=== PATIENT | male | born 1940 | race Caucasian/White ===

== ENCOUNTER → 2017-02-06 | Outpatient (REF) | payer MEDICARE, OTHER ==
[2017-02-06 12:15] LABS: MEAN CORPUSCULAR HEMOGLOBIN 33.1 pg (27.0-33.0); MEAN CORPUSCULAR HGB CONC 34.2 g/dl (32.0-36.5); MEAN CORPUSCULAR VOLUME 96.7 fl (80.0-96.0)
[2017-02-06 12:20] LABS: ALBUMIN 4.2 GM/DL (3.2-5.2); ALBUMIN/GLOBULIN RATIO 1.75 (1.00-1.93); ALKALINE PHOSPHATASE 53 U/L (45-117); ALT/SGPT 24 U/L (12-78); ANION GAP 9 MEQ/L (8-16); AST/SGOT 19 U/L (15-37); BILIRUBIN,TOTAL 0.7 MG/DL (0.2-1.0); BLOOD UREA NITROGEN 24 MG/DL (7-18); CARBON DIOXIDE LEVEL 27 MEQ/L (21-32); CHLORIDE LEVEL 105 MEQ/L (98-107); CHOLESTEROL LEVEL 176 MG/DL (<200); GLOMERULAR FILTRATION RATE > 60.0 (>42); GLUCOSE, FASTING 87 MG/DL (83-110); SODIUM LEVEL 141 MEQ/L (136-145); TOTAL PROTEIN 6.6 GM/DL (6.4-8.2); TRIGLYCERIDES LEVEL 84 MG/DL (<150)
== END ==
LOC: M SFHCPLAZ 08:10
PROVIDERS: ATTEND Internal Medicine
DX: I10 Essential (primary) hypertension (principal); E78.00 Pure hypercholesterolemia, unspecified; Z11.59 Encounter for screening for other viral diseases; Z85.46 Personal history of malignant neoplasm of prostate
CPT/HCPCS: 36415; 80053; 80061; 84153; 85027; G0472

== ENCOUNTER → 2017-12-24 | Outpatient (CLI) | payer MEDICARE, OTHER | LOC: M RAD 16:58 | DX: S83.231A Complex tear of medial meniscus, current injury, right knee, initial encounter (principal); M22.41 Chondromalacia patellae, right knee; M25.461 Effusion, right knee; M25.561 Pain in right knee | CPT/HCPCS: 73721 ==

== ENCOUNTER → 2018-01-06 | Outpatient (REF) | payer MEDICARE, OTHER ==
[2018-01-06 13:18] LABS: HEMATOCRIT 42.4 % (42.0-52.0); HEMOGLOBIN 14.6 g/dl (13.5-17.5); MEAN CORPUSCULAR HEMOGLOBIN 32.6 pg (27.0-33.0); MEAN CORPUSCULAR HGB CONC 34.4 g/dl (32.0-36.5); MEAN CORPUSCULAR VOLUME 94.6 fl (80.0-96.0); PLATELET COUNT, AUTOMATED 192 10^3/uL (150-450); RED BLOOD COUNT 4.48 10^6/uL (4.30-6.10); RED CELL DISTRIBUTION WIDTH 12.6 % (11.5-14.5); WHITE BLOOD COUNT 7.5 10^3/uL (4.0-10.0)
[2018-01-06 13:34] LABS: ALBUMIN 3.9 GM/DL (3.2-5.2); ALKALINE PHOSPHATASE 49 U/L (45-117); ALT/SGPT 21 U/L (12-78); ANION GAP 7 MEQ/L (8-16); AST/SGOT 21 U/L (7-37); BILIRUBIN,TOTAL 0.6 MG/DL (0.2-1.0); BLOOD UREA NITROGEN 24 MG/DL (7-18); CALCIUM LEVEL 8.6 MG/DL (8.8-10.2); CARBON DIOXIDE LEVEL 29 MEQ/L (21-32); CHLORIDE LEVEL 106 MEQ/L (98-107); CHOLESTEROL LEVEL 152 MG/DL (<200); CHOLESTEROL RISK RATIO 2.814 (<5); CREATININE FOR GFR 1.16 MG/DL (0.70-1.30); GLOMERULAR FILTRATION RATE > 60.0 (>42); GLUCOSE, FASTING 94 MG/DL (70-100); HDL CHOLESTEROL 54 MG/DL (>40); NON-HDL-C 98 MG/DL; PROSTATIC SPECIFIC AG MONITOR 0.03 NG/ML (< 4.0); SODIUM LEVEL 142 MEQ/L (136-145); TOTAL PROTEIN 6.5 GM/DL (6.4-8.2); TRIGLYCERIDES LEVEL 80 MG/DL (<150)
== END ==
LOC: M LABDRAW1 08:07
DX: Z85.46 Personal history of malignant neoplasm of prostate (principal); I10 Essential (primary) hypertension; E78.00 Pure hypercholesterolemia, unspecified
CPT/HCPCS: 83735

== ENCOUNTER 2018-12-15 12:46 | Inpatient (IN) | payer MEDICARE, OTHER ==
[~2018-12-15] VITALS: Ht 182.9 cm; Wt 110.8 kg
[2018-12-15] MEDS ORDERED: CARV10CA PO (12:59)
[2018-12-15] MEDS ORDERED: LOSA50TA88 PO (12:59)
[2018-12-15] MEDS ORDERED: CHLO125TA PO (12:59)
[2018-12-15] MEDS ORDERED: ASPI81TA85 PO (12:59)
[2018-12-15] MEDS ORDERED: SPIR-10 PO (12:59)
[2018-12-15 13:24] LABS: BASO % 0.2 % (0.0-1.0); HEMATOCRIT 48.3 % (42.0-52.0); HEMOGLOBIN 16.9 g/dl (13.5-17.5); LYMPH # 0.8 10^3/uL (1.5-4.5); LYMPH % 7.8 % (24.0-44.0); MEAN CORPUSCULAR HEMOGLOBIN 32.9 pg (27.0-33.0); MEAN CORPUSCULAR VOLUME 94.2 fl (80.0-96.0); MONO # 0.3 10^3/uL (0.0-0.8); MONO % 3.2 % (0.0-5.0); NEUTROPHILS # 8.9 10^3/uL (1.8-7.7); NEUTROPHILS % 88.4 % (36.0-66.0); PLATELET COUNT, AUTOMATED 197 10^3/uL (150-450); RED BLOOD COUNT 5.13 10^6/uL (4.30-6.10); WHITE BLOOD COUNT 10.1 10^3/uL (4.0-10.0)
[2018-12-15] MEDS ORDERED: ONDANSETRON 4MG/2ML VIAL (J2405) IV ONE (13:30)
[2018-12-15] MEDS ORDERED: NS 1,000 ML IV ONE (13:30)
[2018-12-15] MEDS: MORPHINE 4 MG/ML 1ML VIAL/SYRINGE (J2270) IV PRN ×2 (13:36→20:11)
[2018-12-15 13:48] LABS: ALBUMIN 4.3 GM/DL (3.2-5.2); ALT/SGPT 36 U/L (12-78); BILIRUBIN,DIRECT 0.2 MG/DL (0.0-0.2); BILIRUBIN,TOTAL 0.8 MG/DL (0.2-1.0); BLOOD UREA NITROGEN 20 MG/DL (7-18); CALCIUM LEVEL 9.9 MG/DL (8.8-10.2); CARBON DIOXIDE LEVEL 26 MEQ/L (21-32); CHLORIDE LEVEL 103 MEQ/L (98-107); CK-MB VALUE MASS 2.1 NG/ML (<3.6); CPK CREATINE PHOSPHOKINASE 101 U/L (39-308); CREATININE FOR GFR 1.21 MG/DL (0.70-1.30); GLOMERULAR FILTRATION RATE > 60.0 (>42); GLUCOSE, FASTING 150 MG/DL (70-100); LIPASE 99 U/L (73-393); MB/CK RELATIVE INDEX 2.08 (< OR =4); POTASSIUM SERUM 3.8 MEQ/L (3.5-5.1); SODIUM LEVEL 139 MEQ/L (136-145); TOTAL PROTEIN 7.4 GM/DL (6.4-8.2); TROPONIN I < 0.02 NG/ML (< 0.10)
[2018-12-15] MEDS ORDERED: ISOVUE-370 76% 100ML VIAL (Q9967) As Ordered ONE (14:00)
--- NOTE | 2018-12-15 15:26 | REP ---
CT ANGIOGRAM ABDOMEN AND PELVIS: CT ABDOMEN AND PELVIS WITH CONTRAST: TECHNIQUE: Axial contrast enhanced images from the lung bases to the pubic symphysis using 100 mL Isovue 370 intravenous contrast material with multiplanar reformations. Sagittal and coronal reconstruction images as well as MIP reconstruction images. Visualized lung bases demonstrate mild fibrotic changes and bronchiectasis. The liver, spleen, adrenals and pancreas appear unremarkable. There is a suspicious mass in the upper pole of the right kidney 3.5 cm in diameter, demonstrating heterogeneous enhancement. This may represent carcinoma. There is a cyst in the upper left kidney laterally 2.5 cm in diameter. There is no hydronephrosis bilaterally. There is no abdominal aortic aneurysm. The abdominal aorta is tortuous. There is no dissection. There is no evidence of lymphadenopathy in the abdomen or pelvis. No free air is seen. Mild scattered free fluid is seen throughout the abdomen and pelvis. There are findings consistent with small bowel obstruction with moderately dilated loops of jejunum filled with air and fluid. The transition point appears to be in the left mid to lower abdomen at about the level of the aortic bifurcation. No bowel wall thickening is seen. Scattered diverticula are noted of the left colon. There is no evidence of appendicitis. No pelvic mass is seen. Urinary bladder is mildly distended and grossly unremarkable. There are degenerative changes of the spine. 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 There is a small hiatal hernia. There is a 1.8 cm cyst in the lower pole of the right kidney. IMPRESSION: No evidence of abdominal aortic aneurysm. Small bowel obstruction which appears to be fairly high grade with the transition point in the left mid abdomen at about the level of the aortic bifurcation. No free air. Mild scattered free fluid in the abdomen and pelvis. Mass upper pole right kidney suspicious for renal cell carcinoma measuring 3.5 cm in diameter. Left renal cyst measures 2.5 cm in diameter. Electronically Signed by Víctor Rao MD 12/15/2018 04:37 P
[2018-12-15] MEDS ORDERED: LEXA1TAB2 PO (15:35)
[2018-12-15] MEDS ORDERED: NAPR-837 PO (15:35)
[2018-12-15] MEDS ORDERED: KETOROLAC 30 MG/ML VIAL (J1885) IV PRN (18:30)
--- NOTE | 2018-12-15 19:28 | HPEPDOC ---
[facility] Medical History & Physical Date of Admission Dec 15, 2018 Date of Service: Dec 15, 2018 Primary Care Physician: Jr Chaudhry Collins History and Physical CHIEF COMPLAINT: abdominal pain HISTORY OF PRESENT ILLNESS: Pt is 78 y/o M with PMHx of prostate ca s/p resection years ago, HTN, hyperlipidemia and kidney lesion not specified, presented to ED due to one day history of severe 8/10 abdominal pain associated with nausea, no vomiting. Pt characterizes pain as constant dull pain with no radiation. Pt reports pain in his chest wall at the same time of abdomen pain. Last BM in the morning normal for pt. No diarrhea no constipation no hemorrhage. Denies any difficulty breathing or lightheadedness. Denies any urinary problem. Pt denies any fever, malaise, denies weight loss. ED course: Pt found to have VS SBP 150-160/90s, HR 90s, mild leukocytosis, NL LFT, NL lipase, negative Trop, no electrolyte imbalance. CT angio of abdomen/pelvis consistent with high grade SBO. Surgery is consulted, recommendations pending. PAST MEDICAL HISTORY: as above PAST SURGICAL HISTORY: 1. Prostate resection 2013 2. Colonoscopy 2007 3. Removal of adenomatous polyp in [place] 2017 SOCIAL HISTORY: Pt lives in [place] spends summer time in this area, lives with , at bedside present, denies smoking,ETOH occasionally FAMILY HISTORY: endometrial ca in mother, HTN in father ALLERGIES: Please see below. REVIEW OF SYSTEMS: 10 point ROS completed negative except as in HPI HOME MEDICATIONS: Please see below. PHYSICAL EXAMINATION: GENERAL APPEARANCE: Pt is pleasant elderly in no acute distress, comfortable states morphine has helped relieving his pain, AAOx3 HEENT: RADHA EOMI no icterus no JVD neck supple CARDIOVASCULAR: S1 S2 no murmur LUNGS: clear bilat ABDOMEN: soft not distended no rebound no guarding tenderness in lower quadrants in deep palpation MUSCULOSKELETAL: no joint deformity EXTREMITIES: no edema no tenderness no cyanosis NEUROLOGICAL: motor sensory grossly intact PSYCHIATRIC: mood affect appropriate LABORATORY DATA: See below. IMAGING: IMPRESSION: No evidence of abdominal aortic aneurysm. Small bowel obstruction which appears to be fairly high grade with the transition point in the left mid abdomen at about the level of the aortic bifurcation. No free air. Mild scattered free fluid in the abdomen and pelvis. Mass upper pole right kidney suspicious for renal cell carcinoma measuring 3.5 cm in diameter. Left renal cyst measures 2.5 cm in diameter. MICROBIOLOGY: Please see below. A/P 1-High grade SBO Conservative medical management IVF NS 150 ml/hr Monitor electrolytes Broad spectrum antibiotics Surgery is consulted Ketorolac prn Antiemetics Protonix DVT prophylaxis Vital Signs Vital Signs Date Time Temp Pulse Resp B/P (MAP) Pulse Ox O2 Delivery O2 Flow Rate FiO2 12/15/18 18:01 98 18 93 Room Air 12/15/18 17:30 159/97 (117) 12/15/18 12:46 97.9 Laboratory Data Labs 24H Laboratory Tests 2 12/15/18 13:04: Immature Granulocyte % (Auto) 0.4, White Blood Count 10.1H, Red Blood Count 5.13, Hemoglobin 16.9, Hematocrit 48.3, Mean Corpuscular Volume 94.2, Mean Corpuscular Hemoglobin 32.9, Mean Corpuscular Hemoglobin Concent 35.0, Red Cell Distribution Width 12.7, Platelet Count 197, Neutrophils (%) (Auto) 88.4H, Lymphocytes (%) (Auto) 7.8L, Monocytes (%) (Auto) 3.2, Eosinophils (%) (Auto) 0.0, Basophils (%) (Auto) 0.2, Neutrophils # (Auto) 8.9H, Lymphocytes # (Auto) 0.8L, Monocytes # (Auto) 0.3, Eosinophils # (Auto) 0.0, Basophils # (Auto) 0.0, Nucleated Red Blood Cells % (auto) 0.0, Anion Gap 10, Glomerular Filtration Rate > 60.0, Calcium Level 9.9, Aspartate Amino Transf (AST/SGOT) 26, Alanine Aminotransferase (ALT/SGPT) 36, Alkaline Phosphatase 60, Total Bilirubin 0.8, Direct Bilirubin 0.2, Total Creatine Kinase 101, Creatine Kinase MB 2.1, Creatine Kinase MB Relative Index 2.08, Troponin I < 0.02, Total Protein 7.4, Albumin 4.3, Albumin/Globulin Ratio 1.39, Lipase 99 CBC/BMP Laboratory Tests 12/15/18 13:04 Red Blood Count 5.13, Mean Corpuscular Volume 94.2, Mean Corpuscular Hemoglobin 32.9, Mean Corpuscular Hemoglobin Concent 35.0, Red Cell Distribution Width 12.7, Neutrophils (%) (Auto) 88.4 H, Lymphocytes (%) (Auto) 7.8 L, Monocytes (%) (Auto) 3.2, Eosinophils (%) (Auto) 0.0, Basophils (%) (Auto) 0.2, Neutrophils # (Auto) 8.9 H, Lymphocytes # (Auto) 0.8 L, Monocytes # (Auto) 0.3, Eosinophils # (Auto) 0.0, Basophils # (Auto) 0.0 Home Medications Scheduled Carvedilol Phosphate (Carvedilol ER) 10 Mg Cpmp.24hr, 10 MG PO DAILY Chlorthalidone (Chlorthalidone) 25 Mg Tablet, 25 MG PO DAILY Escitalopram Oxalate (Lexapro) 20 Mg Tablet, 20 MG PO DAILY Losartan Potassium (Losartan Potassium) 50 Mg Tablet, 50 MG PO DAILY Spironolactone (Spironolactone) 25 Mg Tablet, 12.5 MG PO DAILY Scheduled PRN Naproxen (Naprosyn) 500 Mg Tablet, 500 MG PO BID PRN for BACK PAIN Allergies Coded Allergies: No Known Allergies (Unverified , 12/15/18) A-FIB/CHADSVASC A-FIB History Current/History of A-Fib/PAF?: No HALIMA SKAGGS MD Dec 15, 2018 19:28
[2018-12-15] MEDS: NS 1,000 ML IV SCH (20:12)
[2018-12-15] MEDS: PANTOPRAZOLE 40MG INJ (PROTONIX) (C9113) IV SCH (20:13)
[2018-12-15] MEDS: CIPROFLOXACIN 400 MG in APPROPRIATE DILUENT 1 EA IV SCH (21:00)
[2018-12-15 21:44] VITALS: BP 137/89
[2018-12-15] MEDS: ONDANSETRON 4MG/2ML VIAL (J2405) IV PRN (22:05)
[2018-12-15] MEDS: HEPARIN SOD (PORCINE) 5000 UNITS/ML VIAL SC SCH (22:13)
[2018-12-15] MEDS: metroNIDAZOLE 500 MG in APPROPRIATE DILUENT 1 EA IV SCH (23:21)
[2018-12-16] MEDS: ONDANSETRON 4MG/2ML VIAL (J2405) IV PRN (03:28)
[2018-12-16 04:00] VITALS: BP_SYST 103; BP_SYST 119; BP_DIAS 59; BP_DIAS 65
[2018-12-16] MEDS: NS 1,000 ML IV SCH ×3 (04:20→18:30)
[2018-12-16 05:32] LABS: HEMATOCRIT 42.8 % (42.0-52.0); MEAN CORPUSCULAR HEMOGLOBIN 33.8 pg (27.0-33.0); MEAN CORPUSCULAR HGB CONC 34.6 g/dl (32.0-36.5); MEAN CORPUSCULAR VOLUME 97.7 fl (80.0-96.0); PLATELET COUNT, AUTOMATED 172 10^3/uL (150-450); RED BLOOD COUNT 4.38 10^6/uL (4.30-6.10)
[2018-12-16] MEDS: HEPARIN SOD (PORCINE) 5000 UNITS/ML VIAL SC SCH ×3 (05:54→20:55)
[2018-12-16] MEDS: metroNIDAZOLE 500 MG in APPROPRIATE DILUENT 1 EA IV SCH ×3 (05:54→22:06)
[2018-12-16 06:07] LABS: HEMOGLOBIN 14.8 g/dl (13.5-17.5)
[2018-12-16 06:44] LABS: ALBUMIN 3.1 GM/DL (3.2-5.2); ALT/SGPT 25 U/L (12-78); BILIRUBIN,TOTAL 0.5 MG/DL (0.2-1.0); BLOOD UREA NITROGEN 19 MG/DL (7-18); CALCIUM LEVEL 8.4 MG/DL (8.8-10.2); CARBON DIOXIDE LEVEL 30 MEQ/L (21-32); CHLORIDE LEVEL 105 MEQ/L (98-107); CREATININE FOR GFR 1.13 MG/DL (0.70-1.30); GLOMERULAR FILTRATION RATE > 60.0 (>42); GLUCOSE, FASTING 112 MG/DL (70-100); POTASSIUM SERUM 3.9 MEQ/L (3.5-5.1); SODIUM LEVEL 143 MEQ/L (136-145); TOTAL PROTEIN 5.8 GM/DL (6.4-8.2)
[2018-12-16 08:00] VITALS: BP 114/67
[2018-12-16] MEDS: CIPROFLOXACIN 400 MG in APPROPRIATE DILUENT 1 EA IV SCH ×2 (08:14→20:56)
[2018-12-16] MEDS: PANTOPRAZOLE 40MG INJ (PROTONIX) (C9113) IV SCH (08:14)
--- NOTE | 2018-12-16 10:30 | ECGEPIP ---
[facility] - ED Test Date: 2018-12-15 Pat Name: AUGIE GRAHAM Department: Room: - Gender: Male [employer] Crew: JOSEPHINE : 1940 Requested By: Virgilio Merino Order Number: [id number] Reading MD: Tali Ron Measurements Intervals [place] Rate: 89 P: 18 HI: 190 QRS: QRSD: 87 T: 24 QT: 356 QTc: 433 Interpretive Statements SINUS RHYTHM WITH OCCASIONAL SUPRAVENTRICULAR PREMATURE COMPLEXES MARKED LEFT AXIS DEVIATION PATTERN CONSISTENT WITH PULMONARY DISEASE No prior INFERIOR MYOCARDIAL INFARCTION, PROBABLY OLD baseline artifact may affect interpretation Electronically Signed on 12-16-2018 10:30:51 EDT by Tali Ron
--- NOTE | 2018-12-16 10:38 | IPNPDOC ---
Text Note Date of Service The patient was seen on 12/16/18. NOTE No acute events overnight. Denies any abd pains at all, and no NG was placed. No complaints at all this am. VSSAF NAD abd - soft, nt, nd labs - below A) 78y/o male with SBO on CT and abd pain that has all resolved. P) clq diet ambulate will advance diet in am if tolerating, and d/c home. will follow. Jose A Blake DO VS,Fishbone, I+O VS, Fishbone, I+O Laboratory Tests 12/15/18 13:04 Red Blood Count 5.13, Mean Corpuscular Volume 94.2, Mean Corpuscular Hemoglobin 32.9, Mean Corpuscular Hemoglobin Concent 35.0, Red Cell Distribution Width 12.7, Neutrophils (%) (Auto) 88.4 H, Lymphocytes (%) (Auto) 7.8 L, Monocytes (%) (Auto) 3.2, Eosinophils (%) (Auto) 0.0, Basophils (%) (Auto) 0.2, Neutrophils # (Auto) 8.9 H, Lymphocytes # (Auto) 0.8 L, Monocytes # (Auto) 0.3, Eosinophils # (Auto) 0.0, Basophils # (Auto) 0.0 12/16/18 05:19 Red Blood Count 4.38, Mean Corpuscular Volume 97.7 H, Mean Corpuscular Hemoglobin 33.8 H, Mean Corpuscular Hemoglobin Concent 34.6, Red Cell Distribution Width 13.0, Calcium Level 8.4 #L, Aspartate Amino Transf (AST/SGOT) 17, Alanine Aminotransferase (ALT/SGPT) 25, Alkaline Phosphatase 50, Total Bilirubin 0.5, Total Protein 5.8 #L, Albumin 3.1 #L Vital Signs Date Time Temp Pulse Resp B/P (MAP) Pulse Ox O2 Delivery O2 Flow Rate FiO2 12/16/18 08:00 97.0 66 18 114/67 (83) 97 12/15/18 21:37 Room Air I&O- Last 24 Hours up to 6 AM 12/16/18 05:59 Intake Total 2200 ml Output Total 850 ml Balance 1350 ml LAURI BLAKE DO Dec 16, 2018 10:37
[2018-12-16 12:00] VITALS: BP 129/80
[2018-12-16] MEDS: CHLORTHALIDONE 25 MG TAB PO SCH (15:24)
[2018-12-16] MEDS: SPIRONOLACTONE 12.5MG PER 1/2 TABLET PO SCH (15:24)
[2018-12-16] MEDS: ESCITALOPRAM OXALATE 10 MG TAB (LEXAPRO) PO SCH (15:25)
[2018-12-16 16:00] VITALS: BP 134/80
[2018-12-16] MEDS: LOSARTAN 50 MG TAB PO SCH (16:12)
--- NOTE | 2018-12-16 18:45 | IPNPDOC ---
Text Note Date of Service The patient was seen on 12/16/18. NOTE Pt was seen and examined at bedside. Denies any abdominal pain. Denies N/V. Had BM. Diet advanced tolerating now. GENERAL APPEARANCE: Pt is pleasant elderly in no acute distress, comfortable states morphine has helped relieving his pain, AAOx3 HEENT: RADHA EOMI no icterus no JVD neck supple CARDIOVASCULAR: S1 S2 no murmur LUNGS: clear bilat ABDOMEN: soft not distended no rebound no guarding tenderness in lower quadrants in deep palpation MUSCULOSKELETAL: no joint deformity EXTREMITIES: no edema no tenderness no cyanosis NEUROLOGICAL: motor sensory grossly intact PSYCHIATRIC: mood affect appropriate Vital Signs Date Time Temp Pulse Resp B/P (MAP) Pulse Ox O2 Delivery O2 Flow Rate FiO2 12/16/18 16:12 160/89 12/16/18 16:00 97.7 83 18 134/80 (98) 97 12/16/18 12:00 98.7 66 18 129/80 (96) 96 12/16/18 08:00 97.0 66 18 114/67 (83) 97 12/16/18 04:00 97.7 69 18 119/59 (79) 92 12/15/18 21:44 98.5 98 18 137/89 (105) 95 12/15/18 21:37 97.4 90 18 129/76 (93) 94 Room Air 12/15/18 21:29 92 18 130/81 (97) 94 Room Air 12/15/18 20:50 18 12/15/18 20:13 100 18 144/98 (113) 94 Room Air 12/15/18 20:11 18 144/98 Intake & Output 12/16/18 06:00 Intake Total 2200 ml Output Total 850 ml Balance 1350 ml Laboratory Tests 12/15/18 20:21: Lactic Acid Level 1.4, Procalcitonin [Pending] 12/16/18 05:19: White Blood Count 11.0H, Red Blood Count 4.38, Hemoglobin 14.8#, Hematocrit 42.8, Mean Corpuscular Volume 97.7H, Mean Corpuscular Hemoglobin 33.8H, Mean Corpuscular Hemoglobin Concent 34.6, Red Cell Distribution Width 13.0, Platelet Count 172, Nucleated Red Blood Cells % (auto) 0.0, Blood Urea Nitrogen 19H, Creatinine 1.13, Sodium Level 143, Potassium Level 3.9, Chloride Level 105, Carbon Dioxide Level 30, Calcium Level 8.4#L, Aspartate Amino Transf (AST/SGOT) 17, Alanine Aminotransferase (ALT/SGPT) 25, Alkaline Phosphatase 50, Total Bilirubin 0.5, Total Protein 5.8#L, Albumin 3.1#L, Anion Gap 8, Glomerular Filtration Rate > 60.0, Fasting Glucose 112H, Albumin/Globulin Ratio 1.15 12/16/18 05:30: Urine Color YELLOW, Urine Appearance HAZY, Urine pH 5.0, Urine Specific [place] 1.041, Urine Protein NEGATIVE, Urine Glucose (UA) NEGATIVE, Urine Ketones NEGATIVE, Urine Blood NEGATIVE, Urine Nitrite NEGATIVE, Urine Bilirubin NEGATIVE, Urine Urobilinogen 0.2, Urine Leukocyte Esterase NEGATIVE, Urine WBC (Auto) 1, Urine RBC (Auto) 2, Urine Hyaline Casts (Auto) 0, Urine Bacteria (Auto) NEGATIVE, Urine Squamous Epithelial Cells 0, Urine Mucus (Auto) LARGE, Urine Sperm (Auto) Current Medications Medications (Trade) Dose Ordered Sig/Elias Route PRN Reason Start Time Stop Time Status Last Admin Dose Admin Ciprofloxacin 400 mg/IV Miscellaneous Supplies 200 ml @ 200 mls/hr Q12H IV 12/15/18 21:00 12/16/18 08:14 200 MLS/HR Heparin Sodium (Porcine) (Heparin) 5,000 units Q8H SC 12/15/18 22:00 12/16/18 14:58 5,000 UNITS Ketorolac Tromethamine (ToRADol) 30 mg Q6HP PRN IV moderate to severe pain 12/15/18 18:30 12/20/18 18:29 12/16/18 03:35 30 MG Losartan Potassium (Cozaar) 50 mg DAILY PO 12/16/18 09:00 12/16/18 16:12 50 MG Metronidazole 500 mg/IV Miscellaneous Supplies 100 ml @ 100 mls/hr Q8H IV 12/15/18 22:00 12/16/18 14:59 100 MLS/HR Ondansetron HCl (ZOFRAN INJection) 4 mg Q4HP PRN IV NAUSEA OR VOMITING 12/15/18 18:30 12/16/18 03:28 4 MG Pantoprazole Sodium (Protonix) 40 mg DAILY IV 12/15/18 18:30 12/16/18 08:14 40 MG Sodium Chloride 1,000 ml @ 150 mls/hr Q6H40M IV 12/15/18 18:30 12/16/18 08:15 150 MLS/HR IMAGING: IMPRESSION: No evidence of abdominal aortic aneurysm. Small bowel obstruction which appears to be fairly high grade with the transition point in the left mid abdomen at about the level of the aortic bifurcation. No free air. Mild scattered free fluid in the abdomen and pelvis. Mass upper pole right kidney suspicious for renal cell carcinoma measuring 3.5 cm in diameter. Left renal cyst measures 2.5 cm in diameter. MICROBIOLOGY: Please see below. A/P 1-High grade SBO Improved Conservative medical management IVF NS 150 ml/hr DC Monitor electrolytes Cipro/Flagyl Cont Surgery recommendations appreciated Ketorolac prn DC Antiemetics Protonix 2-Hx of HTN chlorthalidone, losartan resumed DVT prophylaxis Heparin SC Possible DC in AM. VS,Fishbone, I+O VS, Fishbone, I+O Laboratory Tests 12/16/18 05:19 Red Blood Count 4.38, Mean Corpuscular Volume 97.7 H, Mean Corpuscular Hemoglobin 33.8 H, Mean Corpuscular Hemoglobin Concent 34.6, Red Cell Distribution Width 13.0, Calcium Level 8.4 #L, Aspartate Amino Transf (AST/SGOT) 17, Alanine Aminotransferase (ALT/SGPT) 25, Alkaline Phosphatase 50, Total Bilirubin 0.5, Total Protein 5.8 #L, Albumin 3.1 #L Vital Signs Date Time Temp Pulse Resp B/P (MAP) Pulse Ox O2 Delivery O2 Flow Rate FiO2 12/16/18 16:12 160/89 12/16/18 16:00 97.7 83 18 97 12/15/18 21:37 Room Air I&O- Last 24 Hours up to 6 AM 12/16/18 06:00 Intake Total 2200 ml Output Total 850 ml Balance 1350 ml HALIMA SKAGGS MD Dec 16, 2018 18:45
[2018-12-16 20:00] VITALS: BP 139/85
[2018-12-17] MEDS: ONDANSETRON 4MG/2ML VIAL (J2405) IV PRN ×2 (00:29→10:34)
[2018-12-17 01:45] VITALS: BP 139/83
[2018-12-17] MEDS: NS 1,000 ML IV SCH ×5 (03:50→21:49)
[2018-12-17] MEDS: metroNIDAZOLE 500 MG in APPROPRIATE DILUENT 1 EA IV SCH ×3 (05:55→21:49)
[2018-12-17] MEDS: HEPARIN SOD (PORCINE) 5000 UNITS/ML VIAL SC SCH ×3 (05:55→21:49)
[2018-12-17 06:00] VITALS: BP 150/95
[2018-12-17 06:19] LABS: HEMATOCRIT 44.6 % (42.0-52.0); HEMOGLOBIN 15.5 g/dl (13.5-17.5); MEAN CORPUSCULAR HEMOGLOBIN 33.8 pg (27.0-33.0); MEAN CORPUSCULAR HGB CONC 34.8 g/dl (32.0-36.5); MEAN CORPUSCULAR VOLUME 97.2 fl (80.0-96.0); PLATELET COUNT, AUTOMATED 161 10^3/uL (150-450); RED BLOOD COUNT 4.59 10^6/uL (4.30-6.10); WHITE BLOOD COUNT 8.5 10^3/uL (4.0-10.0)
[2018-12-17] MEDS ORDERED: LORazepam 0.5 MG TAB PO ONE (06:30)
[2018-12-17 06:38] LABS: BLOOD UREA NITROGEN 18 MG/DL (7-18); CALCIUM LEVEL 8.3 MG/DL (8.8-10.2); CARBON DIOXIDE LEVEL 26 MEQ/L (21-32); CHLORIDE LEVEL 106 MEQ/L (98-107); CREATININE FOR GFR 1.02 MG/DL (0.70-1.30); GLOMERULAR FILTRATION RATE > 60.0 (>42); GLUCOSE, FASTING 113 MG/DL (70-100); POTASSIUM SERUM 3.6 MEQ/L (3.5-5.1); SODIUM LEVEL 139 MEQ/L (136-145)
[2018-12-17] MEDS: CIPROFLOXACIN 400 MG in APPROPRIATE DILUENT 1 EA IV SCH ×2 (08:40→21:49)
[2018-12-17] MEDS: SPIRONOLACTONE 12.5MG PER 1/2 TABLET PO SCH (08:40)
[2018-12-17] MEDS: PANTOPRAZOLE 40MG INJ (PROTONIX) (C9113) IV SCH (08:40)
[2018-12-17] MEDS: CHLORTHALIDONE 25 MG TAB PO SCH (08:41)
[2018-12-17] MEDS: ESCITALOPRAM OXALATE 10 MG TAB (LEXAPRO) PO SCH (08:41)
[2018-12-17] MEDS: LOSARTAN 50 MG TAB PO SCH (08:41)
[2018-12-17] MEDS: CARVedilol 12.5 MG TAB PO SCH (08:41)
[2018-12-17] MEDS ORDERED: MAALOX 30 ML SUSP *UDC PO PRN (08:45)
--- NOTE | 2018-12-17 09:34 | REP ---
Clinical: Epigastric and abdominal pain. Technique: Upright view of the chest with supine and upright views of the abdomen and pelvis. Findings: Frontal upright view of the chest demonstrates no obvious acute pleuroparenchymal process and no free air below the diaphragm to suspect pneumoperitoneum. Supine and upright views of the abdomen and pelvis demonstrate continued evidence for high-grade small bowel obstruction. Impression: High-grade small bowel obstruction. Electronically Signed by Papi Mathew MD 12/17/2018 09:26 A
[2018-12-17 10:00] VITALS: BP 128/86
[2018-12-17] MEDS ORDERED: KETOROLAC 30 MG/ML VIAL (J1885) IV PRN (11:00)
--- NOTE | 2018-12-17 12:46 | REP ---
Clinical: Nasogastric tube placement. Technique: Three supine views of the abdomen and pelvis. Findings: Examination is limited by positioning. Evidence for high-grade small bowel obstruction is again appreciated. Upper abdomen is excluded from the film and no nasogastric tube is identified. Skeletal structures demonstrate age-related degenerative changes. Impression: Limited examination demonstrates high-grade small bowel obstruction. Upper abdomen is not visualized and nasogastric tube is not identified. Electronically Signed by Paip Mathew MD 12/17/2018 12:37 P
[2018-12-17 14:00] VITALS: BP 125/84
--- NOTE | 2018-12-17 16:02 | REP ---
Clinical: Nasogastric tube placement. Technique: Single supine view of the abdomen and pelvis. Findings: Nasogastric tube appears to be in satisfactory position in the left upper quadrant. High-grade small bowel obstruction is again identified. Skeletal structures stable. Impression: 1. Nasogastric tube in satisfactory position. 2. High-grade small bowel obstruction. Electronically Signed by Papi Mathew MD 12/17/2018 03:54 P
--- NOTE | 2018-12-17 16:23 | IPNPDOC ---
Text Note Date of Service The patient was seen on 12/17/18. NOTE Pt was seen and examined at bedside today. Pt reports poor appetite with nausea. Pt reports not feeling good. No BM. PHE reveals distended epigastric area without rebound or guarding. Abdomen upright X Ray completed which again consistent with small bowel obstruction. Will place NGT to low wall suction. Close clinical monitoring. PHE GENERAL APPEARANCE: Pt is pleasant elderly in no acute distress, comfortable states morphine has helped relieving his pain, AAOx3 HEENT: RADHA EOMI no icterus no JVD neck supple CARDIOVASCULAR: S1 S2 no murmur LUNGS: clear bilat ABDOMEN: soft distended epigastric area no rebound no guarding tenderness in lower quadrants in deep palpation MUSCULOSKELETAL: no joint deformity EXTREMITIES: no edema no tenderness no cyanosis NEUROLOGICAL: motor sensory grossly intact PSYCHIATRIC: mood affect appropriate Vital Signs Date Time Temp Pulse Resp B/P (MAP) Pulse Ox O2 Delivery O2 Flow Rate FiO2 12/17/18 14:00 97.8 70 18 125/84 (98) 92 12/17/18 10:00 98.0 69 16 128/86 (100) 94 12/17/18 08:41 89 129/83 12/17/18 06:00 97.7 85 20 150/95 (113) 92 12/17/18 01:45 97.1 89 20 139/83 (101) 93 12/16/18 20:00 97.6 84 16 139/85 (103) 96 Intake & Output 12/17/18 06:00 Intake Total 2960 ml Output Total 825 ml Balance 2135 ml Laboratory Tests 12/17/18 05:58: White Blood Count 8.5, Red Blood Count 4.59, Hemoglobin 15.5, Hematocrit 44.6, Mean Corpuscular Volume 97.2H, Mean Corpuscular Hemoglobin 33.8H, Mean Cor puscular Hemoglobin Concent 34.8, Red Cell Distribution Width 12.9, Platelet Count 161, Nucleated Red Blood Cells % (auto) 0.0, Blood Urea Nitrogen 18, Creatinine 1.02, Sodium Level 139, Potassium Level 3.6, Chloride Level 106, Carbon Dioxide Level 26, Calcium Level 8.3L, Anion Gap 7L, Glomerular Filtration Rate > 60.0, Fasting Glucose 113H Current Medications Medications (Trade) Dose Ordered Sig/Elias Route PRN Reason Start Time Stop Time Status Last Admin Dose Admin Carvedilol (COReg) 12.5 mg DAILY PO 12/17/18 09:00 12/17/18 08:41 12.5 MG Chlorthalidone (Hygroton) 25 mg DAILY PO 12/16/18 09:00 12/17/18 08:41 25 MG Ciprofloxacin 400 mg/IV Miscellaneous Supplies 200 ml @ 200 mls/hr Q12H IV 12/15/18 21:00 12/17/18 08:40 200 MLS/HR Escitalopram Oxalate (Lexapro) 20 mg DAILY PO 12/16/18 09:00 12/17/18 08:41 20 MG Heparin Sodium (Porcine) (Heparin) 5,000 units Q8H SC 12/15/18 22:00 12/17/18 14:30 5,000 UNITS Losartan Potassium (Cozaar) 50 mg DAILY PO 12/16/18 09:00 12/17/18 08:41 50 MG Metronidazole 500 mg/IV Miscellaneous Supplies 100 ml @ 100 mls/hr Q8H IV 12/15/18 22:00 12/17/18 14:30 100 MLS/HR Ondansetron HCl (ZOFRAN INJection) 4 mg Q4HP PRN IV NAUSEA OR VOMITING 12/15/18 18:30 12/17/18 10:34 4 MG Pantoprazole Sodium (Protonix) 40 mg DAILY IV 12/15/18 18:30 12/17/18 08:40 40 MG Sodium Chloride 1,000 ml @ 150 mls/hr Q6H40M IV 12/15/18 18:30 12/17/18 14:31 150 MLS/HR Spironolactone (Aldactone) 12.5 mg DAILY PO 12/16/18 09:00 12/17/18 08:40 12.5 MG IMAGING: IMPRESSION: No evidence of abdominal aortic aneurysm. Small bowel obstruction which appears to be fairly high grade with the transition point in the left mid abdomen at about the level of the aortic bifurcation. No free air. Mild scattered free fluid in the abdomen and pelvis. Mass upper pole right kidney suspicious for renal cell carcinoma measuring 3.5 cm in diameter. Left renal cyst measures 2.5 cm in diameter. MICROBIOLOGY: Please see below. A/P 1-High grade SBO Clinically not resolving Insert NGT to low wall suction medical management IVF NS 150 ml/hr Monitor electrolytes Cipro/Flagyl Cont Surgery recommendations appreciated Ketorolac prn Antiemetics Protonix 2-Hx of HTN chlorthalidone, losartan resumed 3-Hx of Anxiety/Depression Cont Citalopram DVT prophylaxis Heparin SC VS,Fishbone, I+O VS, Fishbone, I+O Laboratory Tests 12/17/18 05:58 Red Blood Count 4.59, Mean Corpuscular Volume 97.2 H, Mean Corpuscular Hem oglobin 33.8 H, Mean Corpuscular Hemoglobin Concent 34.8, Red Cell Distribution Width 12.9, Calcium Level 8.3 L Vital Signs Date Time Temp Pulse Resp B/P (MAP) Pulse Ox O2 Delivery O2 Flow Rate FiO2 12/17/18 14:00 97.8 70 18 125/84 (98) 92 12/15/18 21:37 Room Air I&O- Last 24 Hours up to 6 AM 12/17/18 06:00 Intake Total 2960 ml Output Total 825 ml Balance 2135 ml HALIMA SKAGGS MD Dec 17, 2018 16:23
--- NOTE | 2018-12-17 16:58 | IPN ---
DATE: 12/17/2018 HISTORY: Patient was admitted by the hospitalist on the evening of 12/15/2018 for a bowel obstruction. He has a nasogastric tube in place. He was seen in consultation by Dr. Blake. Patient reports that he is still having some abdominal fullness, though he is not having much in the way of pain currently. He is not having any flatus or bowel movement. Vital signs show that he has been afebrile over the past 24 hours. His pulse is ranging from 69-89. Blood pressure is good and his room air oxygen saturations are normal. Intake and output shows an intake yesterday of 2500 with an output of 775. PHYSICAL EXAMINATION: Patient is alert and oriented. He is sitting up in a wheelchair getting ready to head to x-ray. Heart exam shows a regular rate and rhythm. The lungs are clear. The abdomen is mildly full. It is fairly quiet with only some minimal bowel sounds. Laboratory studies show that his white count is 8, with a hemoglobin of 16, hematocrit of 45 and platelet count of 161,000. His chemistry profile today showed a sodium of 139, potassium 3.6, chloride 106, CO2 of 26, BUN of 18, creatinine 1 and a glucose of 113. Showed some mildly dilated loops of small bowel in the mid and upper abdomen and a paucity of gas in the lower abdomen. IMPRESSION: Patient appears to have evidence for a persistent obstruction. PLAN: I would recommend continuing the nasogastric (NG) tube to low intermittent suction for now. He should receive maintenance intravenous (IV) fluid. If he shows no improvement by tomorrow, then I think surgical intervention would be appropriate.
[2018-12-17 18:00] VITALS: BP 142/74
[2018-12-17 22:00] VITALS: BP 136/68
[2018-12-18] VITALS (7 sets, daily range): BP systolic 127–168; BP diastolic 45–88
[2018-12-18] MEDS: metroNIDAZOLE 500 MG in APPROPRIATE DILUENT 1 EA IV SCH ×2 (05:18→13:47)
[2018-12-18] MEDS: ALPRAZolam 0.5 MG TAB PO PRN (05:18)
[2018-12-18 06:43] LABS: BASO % 0.3 % (0.0-1.0); EOS # 0.1 10^3/uL (0.0-0.50); EOS % 1.6 % (0.0-3.0); HEMATOCRIT 40.6 % (42.0-52.0); HEMOGLOBIN 14.1 g/dl (13.5-17.5); LYMPH % 13.2 % (24.0-44.0); MEAN CORPUSCULAR HEMOGLOBIN 32.9 pg (27.0-33.0); MEAN CORPUSCULAR HGB CONC 34.7 g/dl (32.0-36.5); MEAN CORPUSCULAR VOLUME 94.6 fl (80.0-96.0); MONO % 12.7 % (0.0-5.0); NEUTROPHILS # 5.5 10^3/uL (1.8-7.7); NEUTROPHILS % 71.9 % (36.0-66.0); PLATELET COUNT, AUTOMATED 158 10^3/uL (150-450); RED BLOOD COUNT 4.29 10^6/uL (4.30-6.10); WHITE BLOOD COUNT 7.7 10^3/uL (4.0-10.0)
[2018-12-18 06:54] LABS: INR 1.12; PROTHROMBIN TIME 14.1 SECONDS (11.8-14.0)
[2018-12-18 07:02] LABS: ALBUMIN 2.9 GM/DL (3.2-5.2); ALT/SGPT 19 U/L (12-78); BILIRUBIN,TOTAL 0.7 MG/DL (0.2-1.0); BLOOD UREA NITROGEN 19 MG/DL (7-18); CARBON DIOXIDE LEVEL 27 MEQ/L (21-32); CHLORIDE LEVEL 104 MEQ/L (98-107); CREATININE FOR GFR 1.05 MG/DL (0.70-1.30); GLOMERULAR FILTRATION RATE > 60.0 (>42); GLUCOSE, FASTING 103 MG/DL (70-100); POTASSIUM SERUM 3.2 MEQ/L (3.5-5.1); SODIUM LEVEL 140 MEQ/L (136-145); TOTAL PROTEIN 5.7 GM/DL (6.4-8.2)
[2018-12-18] MEDS: SPIRONOLACTONE 12.5MG PER 1/2 TABLET PO SCH (10:05)
[2018-12-18] MEDS: LOSARTAN 50 MG TAB PO SCH (10:05)
[2018-12-18] MEDS: CARVedilol 12.5 MG TAB PO SCH (10:06)
[2018-12-18] MEDS: ESCITALOPRAM OXALATE 10 MG TAB (LEXAPRO) PO SCH (10:06)
[2018-12-18] MEDS: PANTOPRAZOLE 40MG INJ (PROTONIX) (C9113) IV SCH (10:07)
[2018-12-18] MEDS: CIPROFLOXACIN 400 MG in APPROPRIATE DILUENT 1 EA IV SCH (10:07)
[2018-12-18] MEDS: CHLORTHALIDONE 25 MG TAB PO SCH (10:07)
--- NOTE | 2018-12-18 13:27 | REP ---
Clinical: Follow up small bowel obstruction. Technique: Supine and upright views of the abdomen and pelvis. Findings: Bowel gas pattern suggests continued small bowel obstruction. No obvious free air to suggest perforation. Lung bases suggest bibasilar atelectasis and small pleural effusions. Skeletal structures are stable. Impression: Findings suggest continued small bowel obstruction. Electronically Signed by Papi Mathew MD 12/18/2018 01:19 P
--- NOTE | 2018-12-18 14:03 | IPN ---
DATE: 12/18/2018 HISTORY: The patient was admitted with evidence for a bowel obstruction on the evening of December 15. He initially was monitored without a nasogastric tube and this was then inserted yesterday morning. He reports that he has still not passed any flatus or stool, though he does report that he is not having any abdominal pain or cramping at this point. Vital signs show that he has been afebrile over the past 24 hours with a pulse in the 70s. Blood pressure is good and his room air oxygen saturations are normal. Intake and output show that yesterday he is recorded as having 4300 in with 1800 out. PHYSICAL EXAMINATION: The patient is sitting up in a chair at the bedside. He is alert and oriented. The nasogastric tube is in place with a small amount of murky cream brown fluid in the canister. Heart exam shows a regular rate and rhythm. The abdomen is perhaps mildly protuberant. He does have bowel sounds present. There is no tympany to percussion. There is no tenderness to percussion. The abdomen is soft throughout without appreciable mass. There is no significant tenderness. He may be a little full in the epigastrium, but still no tenderness. LABORATORY STUDIES: Today include a CBC with a white count of 8, hemoglobin 14, hematocrit of 41 and platelet count of 158,000. Differential count shows 72% neutrophils, 13% lymphocytes and 13% monocytes. A chemistry profile showed a sodium of 140, potassium 3.2, chloride 104, CO2 of 27, BUN of 19, creatinine 1 and a glucose of 103. Liver function tests are normal. IMPRESSION: The patient is very comfortable with his NG tube and the abdomen is soft and nontender. He does report that he has not passed any flatus. I will order a flat and upright abdominal x-ray to look to see if he still has some dilated small-bowel loops. If so, then I believe surgical intervention would be appropriate. If these are no longer seen, then I would accept that he seems to be making good progress and consider whether to clamp his NG tube.
--- NOTE | 2018-12-18 15:53 | IPNPDOC ---
Text Note Date of Service The patient was seen on 12/18/18. NOTE Pt was seen and examined at bedside today. Pt has NGT to low wall suction with gastric drainage, initially bilious and now turned into brown colored mucous drainage. Pt reports no BM. has not passed gas. abdomen exam is benign, soft, not tender, no palpable mass. Otherwise denies tachypnea dyspnea. PHE GENERAL APPEARANCE: Pt is pleasant elderly in no acute distress, comfortable states morphine has helped relieving his pain, AAOx3 HEENT: RADHA EOMI no icterus no JVD neck supple CARDIOVASCULAR: S1 S2 no murmur LUNGS: clear bilat ABDOMEN: soft distended epigastric area no rebound no guarding tenderness in lower quadrants in deep palpation MUSCULOSKELETAL: no joint deformity EXTREMITIES: no edema no tenderness no cyanosis NEUROLOGICAL: motor sensory grossly intact PSYCHIATRIC: mood affect appropriate Vital Signs Date Time Temp Pulse Resp B/P (MAP) Pulse Ox O2 Delivery O2 Flow Rate FiO2 12/17/18 14:00 97.8 70 18 125/84 (98) 92 12/17/18 10:00 98.0 69 16 128/86 (100) 94 12/17/18 08:41 89 129/83 12/17/18 06:00 97.7 85 20 150/95 (113) 92 12/17/18 01:45 97.1 89 20 139/83 (101) 93 12/16/18 20:00 97.6 84 16 139/85 (103) 96 Intake & Output 12/17/18 06:00 Intake Total 2960 ml Output Total 825 ml Balance 2135 ml Laboratory Tests 12/17/18 05:58: White Blood Count 8.5, Red Blood Count 4.59, Hemoglobin 15.5, Hematocrit 44.6, Mean Corpuscular Volume 97.2H, Mean Corpuscular Hemoglobin 33.8H, Mean Corpuscular Hemoglobin Concent 34.8, Red Cell Distribution Width 12.9, Platelet Count 161, Nucleated Red Blood Cells % (auto) 0.0, Blood Urea Nitrogen 18, Creatinine 1.02, Sodium Level 139, Potassium Level 3.6, Chloride Level 106, Car bon Dioxide Level 26, Calcium Level 8.3L, Anion Gap 7L, Glomerular Filtration Rate > 60.0, Fasting Glucose 113H Current Medications Medications (Trade) Dose Ordered Sig/Elias Route PRN Reason Start Time Stop Time Status Last Admin Dose Admin Carvedilol (COReg) 12.5 mg DAILY PO 12/17/18 09:00 12/17/18 08:41 12.5 MG Chlorthalidone (Hygroton) 25 mg DAILY PO 12/16/18 09:00 12/17/18 08:41 25 MG Ciprofloxacin 400 mg/IV Miscellaneous Supplies 200 ml @ 200 mls/hr Q12H IV 12/15/18 21:00 12/17/18 08:40 200 MLS/HR Escitalopram Oxalate (Lexapro) 20 mg DAILY PO 12/16/18 09:00 12/17/18 08:41 20 MG Heparin Sodium (Porcine) (Heparin) 5,000 units Q8H SC 12/15/18 22:00 12/17/18 14:30 5,000 UNITS Losartan Potassium (Cozaar) 50 mg DAILY PO 12/16/18 09:00 12/17/18 08:41 50 MG Metronidazole 500 mg/IV Miscellaneous Supplies 100 ml @ 100 mls/hr Q8H IV 12/15/18 22:00 12/17/18 14:30 100 MLS/HR Ondansetron HCl (ZOFRAN INJection) 4 mg Q4HP PRN IV NAUSEA OR VOMITING 12/15/18 18:30 12/17/18 10:34 4 MG Pantoprazole Sodium (Protonix) 40 mg DAILY IV 12/15/18 18:30 12/17/18 08:40 40 MG Sodium Chloride 1,000 ml @ 150 mls/hr Q6H40M IV 12/15/18 18:30 12/17/18 14:31 150 MLS/HR Spironolactone (Aldactone) 12.5 mg DAILY PO 12/16/18 09:00 12/17/18 08:40 12.5 MG IMAGING: IMPRESSION: No evidence of abdominal aortic aneurysm. Small bowel obstruction which appears to be fairly high grade with the transition point in the left mid abdomen at about the level of the aortic bifurcation. No free air. Mild scattered free fluid in the abdomen and pelvis. Mass upper pole right kidney suspicious for renal cell carcinoma measuring 3.5 cm in diameter. Left renal cyst measures 2.5 cm in diameter. MICROBIOLOGY: Please see below. A/P 1-High grade SBO Clinically not resolving Cont NGT to low wall suction medical management IVF NS 150 ml/hr Monitor electrolytes Cipro/Flagyl Cont Surgery recommendations appreciated Ketorolac prn Antiemetics Protonix 2-Hx of HTN chlorthalidone, losartan resumed 3-Hx of Anxiety/Depression Cont Citalopram DVT prophylaxis Heparin SC VS,Fishbone, I+O VS, Fishbone, I+O Laboratory Tests 12/18/18 06:14 Red Blood Count 4.29 L, Mean Corpuscular Volume 94.6, Mean Corpuscular Hemoglobin 32.9, Mean Corpuscular Hemoglobin Concent 34.7, Red Cell Distribution Width 12.7, Neutrophils (%) (Auto) 71.9 H, Lymphocytes (%) (Auto) 13.2 L, Monocytes (%) (Auto) 12.7 H, Eosinophils (%) (Auto) 1.6, Basophils (%) (Auto) 0.3, Neutrophils # (Auto) 5.5, Lymphocytes # (Auto) 1.0 L, Monocytes # (Auto) 1.0 H, Eosinophils # (Auto) 0.1, Basophils # (Auto) 0.0, Calcium Level 8.0 L, Aspartate Amino Transf (AST/SGOT) 14, Alanine Aminotransferase (ALT/SGPT) 19, Alkaline Phosphatase 42 L, Total Bilirubin 0.7, Total Protein 5.7 L, Albumin 2.9 L Vital Signs Date Time Temp Pulse Resp B/P (MAP) Pulse Ox O2 Delivery O2 Flow Rate FiO2 12/18/18 14:00 97.2 79 20 168/45 (86) 94 12/15/18 21:37 Room Air I&O- Last 24 Hours up to 6 AM 12/18/18 06:00 Intake Total 2820 ml Output Total 1500 ml Balance 1320 ml HALIMA SKAGGS MD Dec 18, 2018 15:53
[2018-12-18 17:13] LABS: HEMATOCRIT 44.6 % (42.0-52.0); HEMOGLOBIN 15.8 g/dl (13.5-17.5); MEAN CORPUSCULAR HEMOGLOBIN 34.1 pg (27.0-33.0); MEAN CORPUSCULAR HGB CONC 35.4 g/dl (32.0-36.5); MEAN CORPUSCULAR VOLUME 96.1 fl (80.0-96.0); PLATELET COUNT, AUTOMATED 177 10^3/uL (150-450); RED BLOOD COUNT 4.64 10^6/uL (4.30-6.10); WHITE BLOOD COUNT 9.2 10^3/uL (4.0-10.0)
[2018-12-18] MEDS ORDERED: PROPOFOL 200 MG/20 ML VIAL As Ordered ONE (17:16)
[2018-12-18] MEDS ORDERED: ROCURONIUM BROMIDE 50 MG/5 ML VIAL As Ordered ONE (17:16)
[2018-12-18] MEDS ORDERED: LIDOCAINE 2% INJ 100 MG/5 ML SDV (FOR ANES.) As Ordered ONE (17:16)
[2018-12-18] MEDS ORDERED: dexameTHASONE 4 MG/ML 1ML VIAL (J1100) As Ordered ONE (17:17)
[2018-12-18] MEDS ORDERED: SUCCINYLCHOLINE 100 MG/5 ML SYRINGE (J0330) As Ordered ONE (17:17)
[2018-12-18] MEDS ORDERED: MIDAZOLAM INJ 2 MG/2 ML VIAL (J2250) As Ordered ONE (17:27)
[2018-12-18] MEDS ORDERED: fentaNYL 250 MCG/5 ML INJECTION (J3010) As Ordered ONE (17:27)
[2018-12-18] MEDS ORDERED: ONDANSETRON 4MG/2ML VIAL (J2405) As Ordered ONE (17:28)
[2018-12-18 17:34] LABS: ALBUMIN 3.4 GM/DL (3.2-5.2); ALT/SGPT 23 U/L (12-78); BILIRUBIN,TOTAL 0.8 MG/DL (0.2-1.0); BLOOD UREA NITROGEN 20 MG/DL (7-18); CALCIUM LEVEL 8.7 MG/DL (8.8-10.2); CARBON DIOXIDE LEVEL 28 MEQ/L (21-32); CHLORIDE LEVEL 104 MEQ/L (98-107); CREATININE FOR GFR 1.09 MG/DL (0.70-1.30); GLOMERULAR FILTRATION RATE > 60.0 (>42); GLUCOSE, FASTING 101 MG/DL (70-100); POTASSIUM SERUM 3.3 MEQ/L (3.5-5.1); SODIUM LEVEL 139 MEQ/L (136-145); TOTAL PROTEIN 6.4 GM/DL (6.4-8.2)
[2018-12-18 17:36] LABS: INR 1.06; PROTHROMBIN TIME 13.5 SECONDS (11.8-14.0)
[2018-12-18] MEDS ORDERED: BUPIVACAINE HCL 0.25% 30 ML VIAL As Ordered ONE (17:37)
[2018-12-18] MEDS ORDERED: SUGAMMADEX SODIUM 500 MG/5 ML VIAL (BRIDION) As Ordered ONE (19:11)
[2018-12-18] MEDS ORDERED: KETOROLAC 60 MG/2 ML VIAL (J1885) As Ordered ONE (19:13)
[2018-12-18] MEDS ORDERED: MORPHINE 4 MG/ML 1ML VIAL/SYRINGE (J2270) IV PRN (19:45)
[2018-12-18] MEDS ORDERED: ONDANSETRON 4MG/2ML VIAL (J2405) IV PRN (20:15)
[2018-12-18] MEDS ORDERED: HYDROMORPHONE HCL 0.5 MG/ 0.5 ML SYRINGE (J1170 PER 1) IV PRN (20:15)
[2018-12-18] MEDS ORDERED: LR 1,000 ML IV SCH (20:15)
[2018-12-18] MEDS ORDERED: PERCOCET 5MG/325MG TAB PO PRN (20:15)
[2018-12-18] MEDS ORDERED: fentaNYL 100 MCG/2 ML INJECTION (J3010) IV PRN (20:15)
[2018-12-18] MEDS: LR 1,000 ML IV SCH (22:07)
[2018-12-19] VITALS (7 sets, daily range): BP systolic 121–146; BP diastolic 71–87
[2018-12-19 06:36] LABS: HEMATOCRIT 41.3 % (42.0-52.0); HEMOGLOBIN 14.2 g/dl (13.5-17.5); LYMPH # 0.6 10^3/uL (1.5-4.5); LYMPH % 8.7 % (24.0-44.0); MEAN CORPUSCULAR HEMOGLOBIN 32.6 pg (27.0-33.0); MEAN CORPUSCULAR HGB CONC 34.4 g/dl (32.0-36.5); MEAN CORPUSCULAR VOLUME 94.9 fl (80.0-96.0); MONO # 0.3 10^3/uL (0.0-0.8); MONO % 4.2 % (0.0-5.0); NEUTROPHILS # 6.4 10^3/uL (1.8-7.7); NEUTROPHILS % 86.4 % (36.0-66.0); PLATELET COUNT, AUTOMATED 180 10^3/uL (150-450); RED BLOOD COUNT 4.35 10^6/uL (4.30-6.10); WHITE BLOOD COUNT 7.4 10^3/uL (4.0-10.0)
[2018-12-19 07:05] LABS: BLOOD UREA NITROGEN 26 MG/DL (7-18); CALCIUM LEVEL 8.1 MG/DL (8.8-10.2); CARBON DIOXIDE LEVEL 27 MEQ/L (21-32); CHLORIDE LEVEL 104 MEQ/L (98-107); GLOMERULAR FILTRATION RATE > 60.0 (>42); GLUCOSE, FASTING 119 MG/DL (70-100); SODIUM LEVEL 140 MEQ/L (136-145)
[2018-12-19] MEDS: PANTOPRAZOLE 40MG INJ (PROTONIX) (C9113) IV SCH (08:33)
[2018-12-19] MEDS: SPIRONOLACTONE 12.5MG PER 1/2 TABLET PO SCH (08:33)
[2018-12-19] MEDS: CHLORTHALIDONE 25 MG TAB PO SCH (08:33)
[2018-12-19] MEDS: LOSARTAN 50 MG TAB PO SCH (08:34)
[2018-12-19] MEDS: ESCITALOPRAM OXALATE 10 MG TAB (LEXAPRO) PO SCH (08:34)
[2018-12-19] MEDS: CARVedilol 12.5 MG TAB PO SCH (08:35)
[2018-12-19] MEDS ORDERED: NAPROXEN 250 MG TAB PO PRN (13:30)
[2018-12-19] MEDS: LR 1,000 ML IV SCH (13:31)
[2018-12-19] MEDS: ALPRAZolam 0.5 MG TAB PO PRN (13:43)
--- NOTE | 2018-12-19 14:04 | RO ---
DATE OF PROCEDURE: 12/18/2018 PREOPERATIVE DIAGNOSIS: Small bowel obstruction secondary to adhesions. POSTOPERATIVE DIAGNOSIS: Small bowel obstruction secondary to adhesions. PROCEDURE PERFORMED: Laparoscopic lysis of adhesions with release of small-bowel obstruction. SURGEON: Dr. Aleman. ANESTHESIA: General. INDICATIONS FOR PROCEDURE: The patient is a 78-year-old man admitted at [facility] with evidence for a bowel obstruction. He was admitted on air or about December 15 and has not shown any evidence of improvement. He is now for laparoscopy and release of his obstruction. OPERATIVE PROCEDURE: The patient was brought to the operating room and placed supine on the operating room table. He was placed under general endotracheal anesthesia. The patient's abdomen was prepped and draped in a sterile fashion. 0.25% Marcaine was infiltrated at the trocar sites as needed. A 5 mm trocar was placed in the left upper quadrant after placement of a Veress needle and insufflation of the abdomen. Initial inspection with the laparoscope showed some dilated and in several areas slightly hemorrhagic small bowel in the upper midabdomen and left upper quadrant while in the right lower quadrant the decompressed cecum and some small bowel that was also small and decompressed was noted. There was a small amount of free fluid within. A second 5 mm trocar was placed at about the level of the umbilicus and a third 5 mm trocar was placed in the left lower quadrant. Graspers were inserted. The terminal ileum was identified and then the small bowel was examined beginning distally and working proximally inspecting the entire length of the bowel. At about the midpoint of the small bowel a fatty tissue band was identified cutting across the bowel. This was not especially tight but clearly this was the site of the obstruction. This was grasped with a grasper and elevated and this divided using the harmonic scalpel. Once this had been eliminated there were no other adhesions identified. The small bowel was identified all the way up to the ligament of Treitz and other than moderate dilation with fluid. The proximal small bowel looked normal. There were some areas just proximal to the obstructing band where there was some a hemorrhagic appearance to the bowel that all appeared viable. A small amount of the clear fluid within the belly was aspirated. The abdomen was then deflated and the trocars were all removed. Incisions were closed with buried 5-0 Vicryl and Steri-Strips. Light dressings were applied. The patient tolerated the procedure well without apparent complication. He was awakened in the operating room, extubated and moved to the recovery room in stable condition.
--- NOTE | 2018-12-19 20:08 | IPN ---
DATE: 12/19/2018 HISTORY: Patient is now postop day #1 from a laparoscopic lysis of adhesions with release of a small bowel obstruction last night. He tolerated the surgery well. He had some mildly hemorrhagic-appearing loops of proximal small bowel, but everything appeared viable. Vital signs show that he has been afebrile since surgery. His pulse is in the 60s to 70s and his blood pressure is normal with a good room air pulse oximetry. Intake and output show that yesterday he had 1800 in with 1400 out. He has had 720 of urine output so far today. His nasogastric (NG) output has been minimal since surgery. PHYSICAL EXAMINATION: The patient is alert and oriented. He is sitting up in a chair at the bedside. He reports no pain and has had a small amount of flatus, but no bowel movement yet. Heart exam shows a regular rate and rhythm. His lungs are clear. The abdomen is perhaps mildly protuberant, but he has active bowel sounds and the abdomen is soft and nontender. Laboratory studies today show white count of 7000, hemoglobin 14, hematocrit of 41 and a platelet count of 180,000. Differential count shows 86% neutrophils, 9% lymphocytes, with 4% monocytes. His chemistry profile shows normal electrolytes, with a BUN of 26, creatinine 1.2 and a glucose of 119. IMPRESSION: Patient is doing very well one day postop from his laparoscopic lysis of adhesions. His NG output has diminished dramatically since the surgery. He has had some flatus, but no bowel movement yet. PLAN: Patient's NG tube is removed. I will start him on some sips of clear liquids and see how he tolerates this. I counseled him that I would anticipate a return of more active bowel function fairly rapidly after his surgery. I encouraged him to be up ambulating.
[2018-12-19] MEDS: DOCUSATE SODIUM 100 MG CAP PO SCH (21:00)
--- NOTE | 2018-12-19 23:03 | IPNPDOC ---
Text Note Date of Service The patient was seen on 12/19/18. NOTE Pt underwent laparascopic lysis of adhesions overnight. Denies any acute complaints. NGT discontinued. Denies any dyspnea or tachypnea. PHE GENERAL APPEARANCE: Pt is pleasant elderly in no acute distress, comfortable states morphine has helped relieving his pain, AAOx3 HEENT: RADHA EOMI no icterus no JVD neck supple CARDIOVASCULAR: S1 S2 no murmur LUNGS: clear bilat ABDOMEN: soft distended epigastric area no rebound no guarding tenderness in lower quadrants in deep palpation MUSCULOSKELETAL: no joint deformity EXTREMITIES: no edema no tenderness no cyanosis NEUROLOGICAL: motor sensory grossly intact PSYCHIATRIC: mood affect appropriate Vital Signs Date Time Temp Pulse Resp B/P (MAP) Pulse Ox O2 Delivery O2 Flow Rate FiO2 12/17/18 14:00 97.8 70 18 125/84 (98) 92 12/17/18 10:00 98.0 69 16 128/86 (100) 94 12/17/18 08:41 89 129/83 12/17/18 06:00 97.7 85 20 150/95 (113) 92 12/17/18 01:45 97.1 89 20 139/83 (101) 93 12/16/18 20:00 97.6 84 16 139/85 (103) 96 Intake & Output 12/17/18 06:00 Intake Total 2960 ml Output Total 825 ml Balance 2135 ml Laboratory Tests 12/17/18 05:58: White Blood Count 8.5, Red Blood Count 4.59, Hemoglobin 15.5, Hematocrit 44.6, Mean Corpuscular Volume 97.2H, Mean Corpuscular Hemoglobin 33.8H, Mean Corpuscular Hemoglobin Concent 34.8, Red Cell Distribution Width 12.9, Platelet Count 161, Nucleated Red Blood Cells % (auto) 0.0, Blood Urea Nitrogen 18, Creatinine 1.02, Sodium Level 139, Potassium Level 3.6, Chloride Level 106, Carbon Dioxide Level 26, Calcium Level 8.3L, Anion Gap 7L, Glomerular Filtration Rate > 60.0, Fasting Glucose 113H Current Medications Medications (Trade) Dose Ordered Sig/Elias Route PRN Reason Start Time Stop Time Status Last Admin Dose Admin Carvedilol (COReg) 12.5 mg DAILY PO 12/17/18 09:00 12/17/18 08:41 12.5 MG Chlorthalidone (Hygroton) 25 mg DAILY PO 12/16/18 09:00 12/17/18 08:41 25 MG Ciprofloxacin 400 mg/IV Miscellaneous Supplies 200 ml @ 200 mls/hr Q12H IV 12/15/18 21:00 12/17/18 08:40 200 MLS/HR Escitalopram Oxalate (Lexapro) 20 mg DAILY PO 12/16/18 09:00 12/17/18 08:41 20 MG Heparin Sodium (Porcine) (Heparin) 5,000 units Q8H SC 12/15/18 22:00 12/17/18 14:30 5,000 UNITS Losartan Potassium (Cozaar) 50 mg DAILY PO 12/16/18 09:00 12/17/18 08:41 50 MG Metronidazole 500 mg/IV Miscellaneous Supplies 100 ml @ 100 mls/hr Q8H IV 12/15/18 22:00 12/17/18 14:30 100 MLS/HR Ondansetron HCl (ZOFRAN INJection) 4 mg Q4HP PRN IV NAUSEA OR VOMITING 12/15/18 18:30 12/17/18 10:34 4 MG Pantoprazole Sodium (Protonix) 40 mg DAILY IV 12/15/18 18:30 12/17/18 08:40 40 MG Sodium Chloride 1,000 ml @ 150 mls/hr Q6H40M IV 12/15/18 18:30 12/17/18 14:31 150 MLS/HR Spironolactone (Aldactone) 12.5 mg DAILY PO 12/16/18 09:00 12/17/18 08:40 12.5 MG IMAGING: IMPRESSION: No evidence of abdominal aortic aneurysm. Small bowel obstruction which appears to be fairly high grade with the transition point in the left mid abdomen at about the level of the aortic bifurcation. No free air. Mild scattered free fluid in the abdomen and pelvis. Mass upper pole right kidney suspicious for renal cell carcinoma measuring 3.5 cm in diameter. Left renal cyst measures 2.5 cm in diameter. MICROBIOLOGY: Please see below. A/P 1-High grade SBO s/p laparoscopic lysis of adhesions DC NGT to low wall suction IVF NS 150 ml/hr Monitor electrolytes Cipro/Flagyl Cont Surgery recommendations appreciated Ketorolac prn Antiemetics Protonix 2-Hx of HTN chlorthalidone, losartan resumed 3-Hx of Anxiety/Depression Cont Citalopram DVT prophylaxis Heparin SC VS,Fishbone, I+O VS, Fishbone, I+O Laboratory Tests 12/19/18 05:55 Red Blood Count 4.35, Mean Corpuscular Volume 94.9, Mean Corpuscular Hemoglobin 32.6, Mean Corpuscular Hemoglobin Concent 34.4, Red Cell Distribution Width 12.4, Neutrophils (%) (Auto) 86.4 H, Lymphocytes (%) (Auto) 8.7 L, Monocytes (%) (Auto) 4.2, Eosinophils (%) (Auto) 0.0, Basophils (%) (Auto) 0.0, Neutrophils # (Auto) 6.4, Lymphocytes # (Auto) 0.6 L, Monocytes # (Auto) 0.3, Eosinophils # (Auto) 0.0, Basophils # (Auto) 0.0, Calcium Level 8.1 L Vital Signs Date Time Temp Pulse Resp B/P (MAP) Pulse Ox O2 Delivery O2 Flow Rate FiO2 12/19/18 22:00 97.0 81 17 144/72 (96) 96 12/19/18 14:00 2.0 12/15/18 21:37 Room Air I&O- Last 24 Hours up to 6 AM 12/19/18 06:00 Intake Total 2295 ml Output Total 1705 ml Balance 590 ml HALIMA SKAGGS MD Dec 19, 2018 23:03
[2018-12-20] VITALS (9 sets, daily range): BP systolic 82–138; BP diastolic 50–82
[2018-12-20] MEDS: LR 1,000 ML IV SCH (02:50)
[2018-12-20] MEDS: ALPRAZolam 0.5 MG TAB PO PRN (05:02)
[2018-12-20] MEDS: ACETAMINOPHEN TAB 650MG DOSE (2X325MG) PO PRN ×3 (05:03→21:04)
[2018-12-20] MEDS: SPIRONOLACTONE 12.5MG PER 1/2 TABLET PO SCH (08:25)
[2018-12-20] MEDS: ESCITALOPRAM OXALATE 10 MG TAB (LEXAPRO) PO SCH (08:25)
[2018-12-20] MEDS: PANTOPRAZOLE 40MG INJ (PROTONIX) (C9113) IV SCH (08:25)
[2018-12-20] MEDS: CHLORTHALIDONE 25 MG TAB PO SCH (08:26)
[2018-12-20] MEDS: DOCUSATE SODIUM 100 MG CAP PO SCH ×2 (08:26→21:02)
[2018-12-20] MEDS: LOSARTAN 50 MG TAB PO SCH (08:26)
[2018-12-20] MEDS: CARVedilol 12.5 MG TAB PO SCH (08:27)
--- NOTE | 2018-12-20 22:14 | IPNPDOC ---
Text Note Date of Service The patient was seen on 12/20/18. NOTE Pt underwent laparascopic lysis of adhesions overnight. Denies any acute complaints. NGT discontinued. Denies any dyspnea or tachypnea. PHE GENERAL APPEARANCE: Pt is pleasant elderly in no acute distress, comfortable states morphine has helped relieving his pain, AAOx3 HEENT: RADHA EOMI no icterus no JVD neck supple CARDIOVASCULAR: S1 S2 no murmur LUNGS: clear bilat ABDOMEN: soft distended epigastric area no rebound no guarding tenderness in lower quadrants in deep palpation MUSCULOSKELETAL: no joint deformity EXTREMITIES: no edema no tenderness no cyanosis NEUROLOGICAL: motor sensory grossly intact PSYCHIATRIC: mood affect appropriate Vital Signs Date Time Temp Pulse Resp B/P (MAP) Pulse Ox O2 Delivery O2 Flow Rate FiO2 12/17/18 14:00 97.8 70 18 125/84 (98) 92 12/17/18 10:00 98.0 69 16 128/86 (100) 94 12/17/18 08:41 89 129/83 12/17/18 06:00 97.7 85 20 150/95 (113) 92 12/17/18 01:45 97.1 89 20 139/83 (101) 93 12/16/18 20:00 97.6 84 16 139/85 (103) 96 Intake & Output 12/17/18 06:00 Intake Total 2960 ml Output Total 825 ml Balance 2135 ml Laboratory Tests 12/17/18 05:58: White Blood Count 8.5, Red Blood Count 4.59, Hemoglobin 15.5, Hematocrit 44.6, Mean Corpuscular Volume 97.2H, Mean Corpuscular Hemoglobin 33.8H, Mean Corpuscular Hemoglobin Concent 34.8, Red Cell Distribution Width 12.9, Platelet Count 161, Nucleated Red Blood Cells % (auto) 0.0, Blood Urea Nitrogen 18, Creatinine 1.02, Sodium Level 139, Potassium Level 3.6, Chloride Level 106, Carbon Dioxide Level 26, Calcium Level 8.3L, Anion Gap 7L, Glomerular Filtration Rate > 60.0, Fasting Glucose 113H Current Medications Medications (Trade) Dose Ordered Sig/Elias Route PRN Reason Start Time Stop Time Status Last Admin Dose Admin Carvedilol (COReg) 12.5 mg DAILY PO 12/17/18 09:00 12/17/18 08:41 12.5 MG Chlorthalidone (Hygroton) 25 mg DAILY PO 12/16/18 09:00 12/17/18 08:41 25 MG Ciprofloxacin 400 mg/IV Miscellaneous Supplies 200 ml @ 200 mls/hr Q12H IV 12/15/18 21:00 12/17/18 08:40 200 MLS/HR Escitalopram Oxalate (Lexapro) 20 mg DAILY PO 12/16/18 09:00 12/17/18 08:41 20 MG Heparin Sodium (Porcine) (Heparin) 5,000 units Q8H SC 12/15/18 22:00 12/17/18 14:30 5,000 UNITS Losartan Potassium (Cozaar) 50 mg DAILY PO 12/16/18 09:00 12/17/18 08:41 50 MG Metronidazole 500 mg/IV Miscellaneous Supplies 100 ml @ 100 mls/hr Q8H IV 12/15/18 22:00 12/17/18 14:30 100 MLS/HR Ondansetron HCl (ZOFRAN INJection) 4 mg Q4HP PRN IV NAUSEA OR VOMITING 12/15/18 18:30 12/17/18 10:34 4 MG Pantoprazole Sodium (Protonix) 40 mg DAILY IV 12/15/18 18:30 12/17/18 08:40 40 MG Sodium Chloride 1,000 ml @ 150 mls/hr Q6H40M IV 12/15/18 18:30 12/17/18 14:31 150 MLS/HR Spironolactone (Aldactone) 12.5 mg DAILY PO 12/16/18 09:00 12/17/18 08:40 12.5 MG IMAGING: IMPRESSION: No evidence of abdominal aortic aneurysm. Small bowel obstruction which appears to be fairly high grade with the transition point in the left mid abdomen at about the level of the aortic bifurcation. No free air. Mild scattered free fluid in the abdomen and pelvis. Mass upper pole right kidney suspicious for renal cell carcinoma measuring 3.5 cm in diameter. Left renal cyst measures 2.5 cm in diameter. MICROBIOLOGY: Please see below. A/P 1-High grade SBO s/p laparoscopic lysis of adhesions DC NGT to low wall suction IVF NS 150 ml/hr Monitor electrolytes Cipro/Flagyl Cont Surgery recommendations appreciated Ketorolac prn Antiemetics Protonix 2-Hx of HTN chlorthalidone, losartan resumed 3-Hx of Anxiety/Depression Cont Citalopram DVT prophylaxis Heparin SC VS,Fishbone, I+O VS, Fishbone, I+O Vital Signs Date Time Temp Pulse Resp B/P (MAP) Pulse Ox O2 Delivery O2 Flow Rate FiO2 12/20/18 22:00 97.7 68 20 130/64 (86) 93 12/19/18 14:00 2.0 12/15/18 21:37 Room Air I&O- Last 24 Hours up to 6 AM 12/20/18 06:00 Intake Total 1250 ml Output Total 1220 ml Balance 30 ml HALIMA SKAGGS MD Dec 20, 2018 22:14
[2018-12-21 02:00] VITALS: BP 98/52
[2018-12-21] MEDS: ALPRAZolam 0.5 MG TAB PO PRN (05:21)
[2018-12-21 06:00] VITALS: BP 110/60
[2018-12-21 08:00] VITALS: BP 116/63
[2018-12-21 09:00] VITALS: BP 110/60
[2018-12-21] MEDS: CHLORTHALIDONE 25 MG TAB PO SCH (09:00)
[2018-12-21] MEDS: SPIRONOLACTONE 12.5MG PER 1/2 TABLET PO SCH (09:00)
[2018-12-21] MEDS: CARVedilol 12.5 MG TAB PO SCH (09:00)
[2018-12-21] MEDS: ESCITALOPRAM OXALATE 10 MG TAB (LEXAPRO) PO SCH (09:00)
[2018-12-21] MEDS ORDERED: PANTOPRAZOLE 40MG TAB (PROTONIX) PO SCH (09:00)
[2018-12-21] MEDS: LOSARTAN 50 MG TAB PO SCH (09:00)
--- NOTE | 2018-12-21 09:33 | CR ---
DATE OF CONSULTATION: 12/15/2018 CHIEF COMPLAINT: Small bowel obstruction. HISTORY OF PRESENT ILLNESS: The patient is a 78-year-old male with history of prostate cancer that was resected surgically a few years ago, who presents now with severe lower abdominal pain that started earlier in the day. He has had nausea but no vomiting. No fevers or chills. No trauma to the area and no recent falls. He has never had any symptoms like this in the past. He was having normal bowel movements up until early this afternoon. No flatus or bowel movement since reaching the emergency room. In the emergency room (ER), he is found to have a CT that showed suggestion of a high-grade small bowel obstruction in the lower abdomen. Therefore, I was called to evaluate. Currently, he still has significant lower abdominal pains. The upper abdomen is nondistended. He has never had problems with bowel obstruction in the past and no recent illnesses. No one around him has been ill, and no changes in diet or medications. PAST MEDICAL HISTORY: Prostate cancer, hypertension, hyperlipidemia. PAST SURGICAL HISTORY: Prostate cancer resected in 2013, previous colonoscopy most recently in 2018. SOCIAL HISTORY: Denies drug, alcohol, or tobacco abuse. FAMILY HISTORY: Noncontributory. ALLERGIES: NONE. HOME MEDICATIONS: Please see med rec. REVIEW OF SYSTEMS: Pertinent positives and negatives as stated in the history of present illness (HPI). PHYSICAL EXAMINATION: General: Alert and oriented times three. No acute distress. Vital signs: Temperature 97.9, pulse 90, respirations 20, blood pressure 151/91, pulse oximetry 96% room air. HEENT: Pupils equally round and react to light and accommodation. Heart: S1, S2, regular rate and rhythm. Lungs: Clear to auscultation bilaterally. Abdomen: Soft, tender to palpation lower abdomen. No rebounding or rigidity. Extremities: No clubbing, cyanosis, or edema. LABORATORY DATA: White count is 10.1, hemoglobin 16.9, platelets 197. Potassium 3.8. Lactic acid 1.4. IMAGING: CT abdomen and pelvis show a small bowel obstruction. It appears to be high-grade with a transition point in the left midabdomen at the level of the aortic bifurcation. No free air. Mild scattered free fluid in the abdomen and pelvis. ASSESSMENT AND PLAN: The patient is a 78-year-old male with signs of a bowel obstruction in the lower abdomen, likely secondary to adhesions from previous prostate surgery. At this time, his lactic acid is normal. He is not peritoneal and there is no indication for emergent surgery at this time. Recommendation is to treat with intravenous (IV) fluids, nothing by mouth, nasogastric (NG) tube decompression, and frequent ambulation. I will continue to monitor him closely. If he improves over the next 48-72 hours, then we will start him on a diet and see how he tolerates it. If he does not have any improvement or shows any signs of increasing pain, distension or elevated leukocytosis or lactic acid, then we will consider emergent operation. This was discussed in detail with him and his and they both understand and agree, and I will continue to follow the patient with you.
[2018-12-21] MEDS: DOCUSATE SODIUM 100 MG CAP PO SCH (09:44)
--- NOTE | 2018-12-21 10:46 | DS.PDOC ---
Discharge Summary General Date of Admission Dec 15, 2018 at 18:25 Date of Discharge 12/21/18 Attending Physician: HAFSA DOMÍNGUEZ MD Specialist/Consultants Involve: Louis Aleman Discharge Summary PROCEDURES PERFORMED DURING STAY: lap lysis of adhesions ADMITTING DIAGNOSES: 1. Small bowel obstruction DISCHARGE DIAGNOSES: 1. Small bowel obstruction, s/p Lap adhesion lysis 2. HTN COMPLICATIONS/CHIEF COMPLAINT: Small Bowel Obstruction HISTORY OF PRESENT ILLNESS: Pt is 78 y/o M with PMHx of prostate ca s/p resection years ago, HTN, hyperlipidemia and kidney lesion not specified, presented to ED due to one day history of severe 8/10 abdominal pain associated with nausea, no vomiting. Pt characterizes pain as constant dull pain with no radiation. Pt reports pain in his chest wall at the same time of abdomen pain. Last BM in the morning normal for pt. No diarrhea no constipation no hemorrhage. Denies any difficulty breathing or lightheadedness. Denies any urinary problem. Pt denies any fever, malaise, denies weight loss. In ED, Pt found to have VS SBP 150-160/90s, HR 90s, mild leukocytosis, NL LFT, NL lipase, negative Trop, no electrolyte imbalance. CT angio of abdomen/pelvis consistent with high grade SBO. HOSPITAL COURSE: after admission, he was kept NPO and gave IVF and pain control and NG suction; he was consulted with surgery; since his obstruction was not resolved with conservative measurement and he underwent Lap adhesion lysis by Dr Aleman; he recovered well; now he tolerated oral intake well and will go home today. he was given 20 mg IV lasix for legs edema/fluid overload prior to discharge. DISCHARGE MEDICATIONS: Please see below. ALLERGIES: Please see below. PHYSICAL EXAMINATION ON DISCHARGE: VITAL SIGNS: Please see below. GENERAL: AA Ox3, not in acute distress HEENT: Atraumatic NECK: No JVD CARDIOVASCULAR EXAMINATION: S1S2 regular no murmur RESPIRATORY EXAMINATION: clear, no wheezing no rale ABDOMINAL EXAMINATION: soft BS +, non tender EXTREMITIES: +2 edema SKIN: no rash NEUROLOGICAL EXAMINATION: non focal PSYCHIATRIC EXAMINATION: no acute psychosis LABORATORY DATA: Please see below. IMAGING: abdominal CT PROGNOSIS: fair ACTIVITY: [As tolerated]. DIET: regular diet DISPOSITION: home ITEMS TO FOLLOWUP ON ON OUTPATIENT: 1. Dr Aleman in 1-2 weeks DISCHARGE CONDITION: stable TIME SPENT ON DISCHARGE: Greater than 35 minutes. Vital Signs/I&Os Vital Signs Date Time Temp Pulse Resp B/P (MAP) Pulse Ox O2 Delivery O2 Flow Rate FiO2 12/21/18 09:00 58 110/60 12/21/18 08:00 96.6 18 95 12/19/18 14:00 2.0 12/15/18 21:37 Room Air I&O- Last 24 Hours up to 6 AM 12/21/18 06:00 Intake Total 2065 ml Output Total 1300 ml Balance 765 ml Discharge Medications Scheduled Carvedilol Phosphate (Carvedilol ER) 10 Mg Cpmp.24hr, 10 MG PO DAILY, (Reported) Chlorthalidone (Chlorthalidone) 25 Mg Tablet, 25 MG PO DAILY, (Reported) Escitalopram Oxalate (Lexapro) 20 Mg Tablet, 20 MG PO DAILY, (Reported) Losartan Potassium (Losartan Potassium) 50 Mg Tablet, 50 MG PO DAILY, (Reported) Spironolactone (Spironolactone) 25 Mg Tablet, 12.5 MG PO DAILY, (Reported) Scheduled PRN Naproxen (Naprosyn) 500 Mg Tablet, 500 MG PO BID PRN for BACK PAIN, (Reported) Allergies Coded Allergies: No Known Allergies (Unverified , 12/15/18) HAFSA DOMÍNGUEZ MD Dec 21, 2018 10:46
[2018-12-21] MEDS ORDERED: FUROSEMIDE 20 MG/2 ML VIAL (J1940) IV ONE (11:00)
--- NOTE | 2018-12-22 05:06 | IPN ---
DATE: 12/20/2018 HISTORY: The patient is now 2 days postop from his laparoscopy with lysis of adhesions and release of his small bowel obstruction. He has been on clear liquids since yesterday and has tolerated these well. His urine output is good. He denies any nausea or vomiting. He has been passing some flatus but is not yet had a bowel movement. He reports he has been up walking quite a bit since the surgery. VITAL SIGNS: Show that he has been afebrile over the past 24 hours. His pulse is in the 60s to low 80s and blood pressure is fine. Intake and output show that yesterday he had 1500 and 720 out. PHYSICAL EXAMINATION: The patient is sitting up in a chair looking quite comfortable. He is alert and oriented. His heart exam shows a regular rhythm. Lungs are clear. The abdomen is soft. He has active bowel sounds. There is no significant tenderness on palpation. IMPRESSION: The patient is doing very well following his surgery. He has tolerated liquids well with no nausea or vomiting. He is passing flatus but has not yet had a bowel movement. PLAN: The patient will be advanced to a regular diet. I will allow him to take a shower and saline lock his IV. I would anticipate that he would be ready for discharge likely in the morning.
== END 2018-12-21 11:55 | disposition home or self-care (01) | DRG 337 ==
LOC: M ED 12:46 → M ED INP 18:25 → M PCU 21:44 → M MSPAV 12-17 01:21
PROVIDERS: ADMIT Hospitalist; ATTEND Hospitalist
PROC: 0DN84ZZ Release Small Intestine, Percutaneous Endoscopic Approach (ICD-10-PCS; principal; 2018-12-18 17:05)
DX: K56.52 Intestinal adhesions [bands] with complete obstruction (principal); I10 Essential (primary) hypertension; E78.5 Hyperlipidemia, unspecified; F32.9 Major depressive disorder, single episode, unspecified; N28.1 Cyst of kidney, acquired; N28.89 Other specified disorders of kidney and ureter; F41.9 Anxiety disorder, unspecified; Z85.46 Personal history of malignant neoplasm of prostate; Z86.010 Personal history of colon polyps; Z79.899 Other long term (current) drug therapy

== ENCOUNTER → 2018-12-27 | Outpatient (REF) | payer MEDICARE, OTHER ==
[~2018-12-27] MED LIST: ASPI81TA85 PO; CARV10CA PO; CHLO125TA PO; LEXA1TAB2 PO; LOSA50TA88 PO; NAPR-837 PO; SPIR-10 PO
== END ==
LOC: M SFHCPLAZ 18:28
PROVIDERS: ATTEND Nurse Practitioner Adult Health
DX: R19.7 Diarrhea, unspecified (principal)
CPT/HCPCS: 87507; 93005; G0463

== ENCOUNTER → 2019-01-05 | Outpatient (REF) | payer MEDICARE, OTHER ==
[2019-01-05 13:18] LABS: HEMATOCRIT 44.2 % (42.0-52.0); HEMOGLOBIN 15.2 g/dl (13.5-17.5); MEAN CORPUSCULAR HEMOGLOBIN 33.8 pg (27.0-33.0); MEAN CORPUSCULAR HGB CONC 34.4 g/dl (32.0-36.5); MEAN CORPUSCULAR VOLUME 98.2 fl (80.0-96.0); PLATELET COUNT, AUTOMATED 203 10^3/uL (150-450); WHITE BLOOD COUNT 5.3 10^3/uL (4.0-10.0)
[2019-01-05 13:25] LABS: ALT/SGPT 22 U/L (12-78); BILIRUBIN,TOTAL 0.8 MG/DL (0.2-1.0); BLOOD UREA NITROGEN 20 MG/DL (7-18); CALCIUM LEVEL 9.3 MG/DL (8.8-10.2); CARBON DIOXIDE LEVEL 28 MEQ/L (21-32); CHLORIDE LEVEL 105 MEQ/L (98-107); CHOLESTEROL LEVEL 146 MG/DL (<200); CHOLESTEROL RISK RATIO 2.703 (<5); CREATININE FOR GFR 1.09 MG/DL (0.70-1.30); GLOMERULAR FILTRATION RATE > 60.0 (>42); GLUCOSE, FASTING 96 MG/DL (70-100); HDL CHOLESTEROL 54 MG/DL (>40); LDL CHOLESTEROL 70 MG/DL (<100); MAGNESIUM LEVEL 2.1 MG/DL (1.8-2.4); NON-HDL-C 92 MG/DL; POTASSIUM SERUM 3.9 MEQ/L (3.5-5.1); PROSTATIC SPECIFIC AG MONITOR 0.03 NG/ML (< 4.00); SODIUM LEVEL 140 MEQ/L (136-145); TOTAL PROTEIN 6.8 GM/DL (6.4-8.2); TRIGLYCERIDES LEVEL 111 MG/DL (<150)
[2019-01-07 00:08] LABS: Lyme Disease IgG/IgM Antibodie <0.91 ISR (0.00-0.90); Lyme Disease IgM Ab Quantitati <0.80 index (0.00-0.79)
== END ==
LOC: M LABDRAW1 09:24
PROVIDERS: ATTEND Internal Medicine
DX: I10 Essential (primary) hypertension (principal); W57.XXXD Bitten or stung by nonvenomous insect and other nonvenomous arthropods, subsequent encounter; Z87.19 Personal history of other diseases of the digestive system; Z85.46 Personal history of malignant neoplasm of prostate; M76.61 Achilles tendinitis, right leg
CPT/HCPCS: 36415; 80053; 80061; 82306; 83735; 84153; 85027; 86617; G0463

== ENCOUNTER → 2019-01-05 | Outpatient (REF) | payer MEDICARE, OTHER | LOC: M LABDRAW1 09:26 | PROVIDERS: ATTEND Orthopaedic Surgery | DX: M76.61 Achilles tendinitis, right leg (principal) ==

== ENCOUNTER → 2022-01-06 | Outpatient (CLI) | payer MEDICARE, OTHER ==
[~2022-01-06] MED LIST changes: -ASPI81TA85 PO; +ASPI81TA86 PO; +LOSA50TA28 PO; -LOSA50TA88 PO
[2022-01-06 10:28] LABS: BASO % 0.3 % (0.0-1.0); EOS # 0.3 10^3/uL (0.0-0.5); EOS % 4.3 % (0.0-3.0); HEMOGLOBIN 14.9 g/dl (13.5-17.5); LYMPH # 1.5 10^3/uL (1.5-5.0); LYMPH % 22.8 % (24.0-44.0); MEAN CORPUSCULAR HEMOGLOBIN 33.5 pg (27.0-33.0); MEAN CORPUSCULAR HGB CONC 34.7 g/dl (32.0-36.5); MEAN CORPUSCULAR VOLUME 96.6 fl (80.0-96.0); MONO % 15.5 % (2.0-8.0); NEUTROPHILS # 3.7 10^3/uL (1.5-8.5); NEUTROPHILS % 56.8 % (36.0-66.0); PLATELET COUNT, AUTOMATED 192 10^3/uL (150-450); RED BLOOD COUNT 4.45 10^6/uL (4.30-6.10); WHITE BLOOD COUNT 6.6 10^3/uL (4.0-10.0)
[2022-01-06 10:51] LABS: ALBUMIN 3.9 GM/DL (3.2-5.2); ALT/SGPT 30 U/L (12-78); BILIRUBIN,TOTAL 0.9 MG/DL (0.2-1.0); BLOOD UREA NITROGEN 23 MG/DL (7-18); CALCIUM LEVEL 9.5 MG/DL (8.8-10.2); CARBON DIOXIDE LEVEL 29 MEQ/L (21-32); CHLORIDE LEVEL 106 MEQ/L (98-107); CHOLESTEROL LEVEL 161 MG/DL (<200); CHOLESTEROL RISK RATIO 2.775 (<5); CREATININE FOR GFR 1.21 MG/DL (0.70-1.30); GLOMERULAR FILTRATION RATE > 60.0 (>35); GLUCOSE, FASTING 106 MG/DL (70-100); HDL CHOLESTEROL 58 MG/DL (>40); LDL CHOLESTEROL 79 MG/DL (<100); MAGNESIUM LEVEL 1.8 MG/DL (1.8-2.4); NON-HDL-C 103 MG/DL; POTASSIUM SERUM 3.9 MEQ/L (3.5-5.1); PROSTATIC SPECIFIC AG MONITOR 0.04 NG/ML (< 4.00); SODIUM LEVEL 142 MEQ/L (136-145); TOTAL PROTEIN 6.8 GM/DL (6.4-8.2); TRIGLYCERIDES LEVEL 121 MG/DL (<150)
[2022-01-06 11:17] LABS: TOTAL 25(OH) VITAMIN D 72.3 NG/ML (30.0-100.0)
== END ==
LOC: M PLALAB 08:02
PROVIDERS: ATTEND Internal Medicine
DX: I10 Essential (primary) hypertension (principal); R53.81 Other malaise; E78.00 Pure hypercholesterolemia, unspecified; Z85.46 Personal history of malignant neoplasm of prostate

== ENCOUNTER 2022-02-20 13:21 | Observation (INO) | payer MEDICARE, OTHER ==
[~2022-02-20] VITALS: Ht 180.3 cm; Wt 114.6 kg
[2022-02-20] MEDS ORDERED: PANTOPRAZOLE 40MG VIAL IV ONE (16:45)
[2022-02-20 16:50] LABS: BASO % 0.2 % (0.0-1.0); EOS # 0.3 10^3/uL (0.0-0.5); HEMATOCRIT 44.6 % (42.0-52.0); HEMOGLOBIN 15.3 g/dl (13.5-17.5); MEAN CORPUSCULAR HEMOGLOBIN 33.4 pg (27.0-33.0); MEAN CORPUSCULAR HGB CONC 34.3 g/dl (32.0-36.5); MEAN CORPUSCULAR VOLUME 97.4 fl (80.0-96.0); MONO % 10.8 % (2.0-8.0); NEUTROPHILS # 5.7 10^3/uL (1.5-8.5); NEUTROPHILS % 63.7 % (36.0-66.0); PLATELET COUNT, AUTOMATED 240 10^3/uL (150-450); RED BLOOD COUNT 4.58 10^6/uL (4.30-6.10)
[2022-02-20 16:53] LABS: INR 1.11; PROTHROMBIN TIME 14.8 SECONDS (12.7-14.5)
[2022-02-20 16:54] LABS: PARTIAL THROMBOPLASTIN TIME 32.3 SECONDS (25.9-37.0)
[2022-02-20] MEDS ORDERED: VITA500T9 PO (17:09)
[2022-02-20] MEDS ORDERED: VITA500030 PO (17:09)
[2022-02-20] MEDS ORDERED: ELIQ5TAB PO (17:09)
[2022-02-20 17:34] LABS: BILIRUBIN,DIRECT 0.2 MG/DL (0.0-0.2); BILIRUBIN,TOTAL 0.6 MG/DL (0.2-1.0); CALCIUM LEVEL 9.5 MG/DL (8.8-10.2); CREATININE FOR GFR 1.35 MG/DL (0.70-1.30); GLOMERULAR FILTRATION RATE 54.1 (>35); POTASSIUM SERUM 3.7 MEQ/L (3.5-5.1); TOTAL PROTEIN 7.3 GM/DL (6.4-8.2)
[2022-02-20 18:23] LABS: RSV AMPLIFICATION NEGATIVE (NEGATIVE)
[2022-02-20] MEDS ORDERED: CHLO1TAB35 PO (19:10)
[2022-02-20] MEDS ORDERED: HOME MED LIST COMPLETE! XX SCH (19:10)
[2022-02-20 20:22] VITALS: BP 158/90
[2022-02-20] MEDS: PREPARATION H SUPP (HEMORRHOID) PR SCH (22:31)
[2022-02-21 06:00] VITALS: BP 148/89
[2022-02-21 06:38] LABS: HEMATOCRIT 40.1 % (42.0-52.0); HEMOGLOBIN 13.8 g/dl (13.5-17.5); MEAN CORPUSCULAR HEMOGLOBIN 33.1 pg (27.0-33.0); MEAN CORPUSCULAR HGB CONC 34.4 g/dl (32.0-36.5); MEAN CORPUSCULAR VOLUME 96.2 fl (80.0-96.0); PLATELET COUNT, AUTOMATED 198 10^3/uL (150-450); RED BLOOD COUNT 4.17 10^6/uL (4.30-6.10); WHITE BLOOD COUNT 7.1 10^3/uL (4.0-10.0)
[2022-02-21 07:05] LABS: ALBUMIN 3.2 GM/DL (3.2-5.2); ALT/SGPT 29 U/L (12-78); BILIRUBIN,TOTAL 0.6 MG/DL (0.2-1.0); BLOOD UREA NITROGEN 23 MG/DL (7-18); CALCIUM LEVEL 9.2 MG/DL (8.8-10.2); CARBON DIOXIDE LEVEL 30 MEQ/L (21-32); CHLORIDE LEVEL 104 MEQ/L (98-107); CREATININE FOR GFR 1.09 MG/DL (0.70-1.30); GLOMERULAR FILTRATION RATE > 60.0 (>35); GLUCOSE, FASTING 98 MG/DL (70-100); POTASSIUM SERUM 3.4 MEQ/L (3.5-5.1); SODIUM LEVEL 138 MEQ/L (136-145); TOTAL PROTEIN 6.4 GM/DL (6.4-8.2)
[2022-02-21] MEDS ORDERED: POTASSIUM CHLORIDE 10MEQ SR TABLET PO ONE (08:10)
[2022-02-21] MEDS: PANTOPRAZOLE 40MG VIAL IV SCH ×2 (08:20→19:59)
[2022-02-21] MEDS: CHLORTHALIDONE 25 MG TAB PO SCH (08:20)
[2022-02-21] MEDS: PREPARATION H SUPP (HEMORRHOID) PR SCH ×2 (08:20→19:59)
[2022-02-21] MEDS: SPIRONOLACTONE 12.5MG PER 1/2 TABLET PO SCH (08:20)
[2022-02-21] MEDS: LOSARTAN 50MG TABLET PO SCH (08:21)
[2022-02-21 14:00] VITALS: BP 138/85
[2022-02-21 22:00] VITALS: BP 100/64
[2022-02-22 06:00] VITALS: BP 139/88
[2022-02-22 06:26] LABS: HEMATOCRIT 39.1 % (42.0-52.0); HEMOGLOBIN 13.5 g/dl (13.5-17.5); MEAN CORPUSCULAR HEMOGLOBIN 33.5 pg (27.0-33.0); MEAN CORPUSCULAR HGB CONC 34.5 g/dl (32.0-36.5); PLATELET COUNT, AUTOMATED 185 10^3/uL (150-450); RED BLOOD COUNT 4.03 10^6/uL (4.30-6.10); WHITE BLOOD COUNT 6.9 10^3/uL (4.0-10.0)
[2022-02-22 07:08] LABS: ALBUMIN 3.3 GM/DL (3.2-5.2); ALT/SGPT 24 U/L (12-78); BILIRUBIN,TOTAL 0.4 MG/DL (0.2-1.0); BLOOD UREA NITROGEN 22 MG/DL (7-18); CARBON DIOXIDE LEVEL 28 MEQ/L (21-32); CHLORIDE LEVEL 103 MEQ/L (98-107); CREATININE FOR GFR 1.11 MG/DL (0.70-1.30); GLOMERULAR FILTRATION RATE > 60.0 (>35); GLUCOSE, FASTING 94 MG/DL (70-100); POTASSIUM SERUM 3.6 MEQ/L (3.5-5.1); SODIUM LEVEL 137 MEQ/L (136-145); TOTAL PROTEIN 5.9 GM/DL (6.4-8.2)
[2022-02-22] MEDS ORDERED: ANUS25SU PR (07:43)
[2022-02-22 08:02] VITALS: BP 138/87
[2022-02-22] MEDS: PANTOPRAZOLE 40MG VIAL IV SCH (08:02)
[2022-02-22] MEDS: CHLORTHALIDONE 25 MG TAB PO SCH (08:02)
[2022-02-22] MEDS: LOSARTAN 50MG TABLET PO SCH (08:02)
[2022-02-22] MEDS: SPIRONOLACTONE 12.5MG PER 1/2 TABLET PO SCH (08:02)
[2022-02-22] MEDS: PREPARATION H SUPP (HEMORRHOID) PR SCH (08:02)
[2022-02-22] MEDS ORDERED: PROT1TAB2 PO (13:07)
== END 2022-02-22 13:33 | disposition home or self-care (01) ==
LOC: M ED 13:21 → M ED INP 13:22 → M MSPAV 20:09
PROVIDERS: ADMIT Internal Medicine; ATTEND Internal Medicine
DX: K92.2 Gastrointestinal hemorrhage, unspecified (principal); Z87.19 Personal history of other diseases of the digestive system; I48.91 Unspecified atrial fibrillation; Z86.718 Personal history of other venous thrombosis and embolism; K64.9 Unspecified hemorrhoids; I10 Essential (primary) hypertension; F32.A Depression, unspecified; E55.9 Vitamin D deficiency, unspecified; Z85.46 Personal history of malignant neoplasm of prostate; Z90.79 Acquired absence of other genital organ(s); N28.9 Disorder of kidney and ureter, unspecified; I72.9 Aneurysm of unspecified site; Z20.822 Contact with and (suspected) exposure to COVID-19; Z79.899 Other long term (current) drug therapy; Z79.01 Long term (current) use of anticoagulants; Z87.891 Personal history of nicotine dependence
CPT/HCPCS: 36415; 80048; 80053; 80076; 85025; 85027; 85610; 85730; 86850; 86900; 86901; 87631; 93041; 96374; 96375; 96376; 97161; 99285; C9113; G0378